=== PATIENT | female | born 1940 | race African-American/Black ===

== ENCOUNTER 2017-11-18 19:26 | Inpatient (IN) | payer MEDICARE, MEDICAID ==
[~2017-11-18] VITALS: Ht 165.1 cm; Wt 68.1 kg
[2017-11-18] MEDS ORDERED: METHYLPREDNISOLONE SOD SUCC 125 MG/2 ML VIAL IV ONE (19:45)
[2017-11-18] MEDS ORDERED: ALBUTEROL (0.083%) 2.5MG/3ML NEB HHN ONE (19:45)
[2017-11-18 20:40] LABS: BASOPHILS % 0.4 % (0.0-2.0); EOSINOPHILS % 0.4 % (0.0-5.0); HEMATOCRIT. 35.2 % (36.0-48.0); HEMOGLOBIN. 11.3 g/dL (12.0-16.0); MEAN CORPUSCULAR HEMOGLOBIN 26.4 pg (28.0-32.0); MEAN CORPUSCULAR VOLUME 81.8 fL (81.0-99.0); MONOCYTES % 6.9 % (2.0-8.0); NEUTROPHILS % 73.3 % (40.0-76.0); RED CELL DISTRIBUTION WIDTH 15.8 % (11.6-14.6)
[2017-11-18 20:41] LABS: CHLORIDE 113 mEq/L (98-107)
[2017-11-18] MEDS ORDERED: METHYLPREDNISOLONE SOD SUCC 125 MG/2 ML VIAL IV NR (20:45)
[2017-11-18 20:53] LABS: INR 1.2; PROTHROMBIN TIME 12.7 sec (9.4-11.6)
[2017-11-18] MEDS ORDERED: NITROGLYCERIN 0.1MG/HR PATCH TOP ONE (21:15)
[2017-11-18] MEDS ORDERED: FUROSEMIDE 40MG/4ML VIAL IVP ONE (21:15)
[2017-11-18 21:19] LABS: BG BASE EXCESS -1.5 mmol/L (-2.0-2.0); BG BILEVEL POS AIRWAY PRESSURE 15/5; BG CARBOXYHEMOGLOBIN 0.4 % (0.5-1.5); BG DEOXYHEMOGLOBIN 0.2 % (0.0-5.0); BG FRACTION INSPIRED OXYGEN 100; BG METHEMOGLOBIN 0.4 % (0.0-1.5); BG OXYGEN SATURATION 99.8 % (92.0-98.5); BG PH 7.399 (7.350-7.450); BG PO2 448.7 mmHg (75.0-100.0); BG SAMPLE SITE RIGHT RADIAL; BG TOTAL HEMOGLOBIN 12.3 g/dL (12.0-18.0); BG VENT MODE MASK - BIPAP; BG VENT RATE 20 set
[2017-11-18 21:34] LABS: CREATINE KINASE 103 IU/L (26-192)
[2017-11-18] MEDS ORDERED: CLONIDINE 0.1MG TABLET PO PRN (23:00)
[2017-11-18] MEDS ORDERED: IPRATROPIUM/ALBUTEROL 0.5-3(2.5)MG/3ML NEB INH PRN (23:00)
[2017-11-18] MEDS ORDERED: NITROGLYCERIN 0.4MG TABLET SL SL PRN (23:00)
[2017-11-18] MEDS ORDERED: GUAIFENESIN 200MG/10ML SUGAR FREE UDC PO PRN (23:00)
[2017-11-18] MEDS ORDERED: DIPHENHYDRAMINE 50MG/ML VIAL IV PRN (23:00)
[2017-11-18] MEDS: POTASSIUM CHLORIDE 20MEQ TABLET SR PO NR (23:00)
[2017-11-18] MEDS ORDERED: ACETAMINOPHEN 325MG TABLET PO PRN (23:00)
[2017-11-18] MEDS ORDERED: ONDANSETRON HCL 4MG/2ML VIAL IV PRN (23:00)
[2017-11-18] MEDS ORDERED: DOCUSATE SODIUM 100MG CAPSULE PO PRN (23:00)
[2017-11-18] MEDS ORDERED: LORAZEPAM 0.5MG TABLET PO PRN (23:00)
[2017-11-18] MEDS ORDERED: KETOROLAC 15MG/ML VIAL IV PRN (23:00)
[2017-11-18] MEDS ORDERED: NA PHOS,M-B/NA PHOS,DI-BA ENEMA 118ML PR PRN (23:00)
[2017-11-18] MEDS ORDERED: ZOLPIDEM TARTRATE 5MG TABLET PO PRN (23:00)
[2017-11-18] MEDS ORDERED: MAGNESIUM/ALUMINUM HYDROXIDE/SIMETHICONE 30ML UDC PO PRN (23:00)
[2017-11-18] MEDS ORDERED: TRAMADOL 50MG TABLET PO PRN (23:00)
[2017-11-19] VITALS (14 sets, daily range): BP systolic 138–166; BP diastolic 78–99
[2017-11-19] MEDS ORDERED: ONDANSETRON 4MG ODT PO PRN (02:45)
[2017-11-19] MEDS ORDERED: LEVOFLOXACIN 500MG PREMIX 100 ML IV SCH ×2 (03:00→04:00)
[2017-11-19] MEDS: DILTIAZEM HCL 60MG TABLET PO SCH ×4 (06:16→18:24)
[2017-11-19 07:12] LABS: CREATINE KINASE MB FRACTION 2.2 ng/mL (0.5-3.6)
[2017-11-19] MEDS: ASPIRIN 325MG EC TABLET PO SCH (09:00)
[2017-11-19] MEDS ORDERED: HYDRALAZINE 20MG/ML VIAL IV PRN (10:45)
[2017-11-19] MEDS: FAMOTIDINE 20MG TABLET PO SCH (11:40)
[2017-11-19] MEDS: GUAIFENESIN/DM 600MG/30MG ER TAB 12HR PO SCH ×2 (11:40→21:00)
[2017-11-19] MEDS: METOPROLOL TARTRATE 25MG TABLET PO SCH ×2 (11:40→21:00)
[2017-11-19] MEDS: ZINC SULFATE 220 MG ( 50 ) CAPSULE PO SCH (11:40)
[2017-11-19] MEDS: SPIRONOLACTONE 25MG TABLET PO SCH ×2 (11:42→21:00)
[2017-11-19] MEDS: ASCORBIC ACID 500 MG TABLET PO SCH ×2 (11:43→21:00)
[2017-11-19] MEDS ORDERED: KCL 20MEQ/100ML PREMIX 100 ML IV NR (12:00)
[2017-11-19] MEDS: FUROSEMIDE 40MG/4ML VIAL IVP SCH ×2 (14:54→21:15)
[2017-11-19] MEDS: ENOXAPARIN 40MG/0.4ML SYR SUBCUT SCH (18:24)
[2017-11-19 18:30] LABS: ETHANOL BLOOD < 10 mg/dL
[2017-11-19 18:33] LABS: LDL CHOLESTEROL 66 mg/dL (5-100)
[2017-11-19 18:35] LABS: HDL CHOLESTEROL 66 mg/dL (40-59); T4 FREE 1.12 ng/dL (0.76-1.46)
[2017-11-19 18:48] LABS: FOLIC ACID (FOLATE) SERUM >20 ng/mL ng/mL (>5.38)
[2017-11-19 19:00] LABS: VITAMIN B12 SERUM 899 pg/mL (211-911)
[2017-11-19] MEDS: PIPERACILLIN/TAZ 3.375G PREMIX 50 ML IV SCH (22:08)
[2017-11-19 23:06] LABS: CLARITY URINE CLEAR (CLEAR); COLOR URINE YELLOW (YELLOW); KETONES URINE NEGATIVE (NEGATIVE); LEUKOCYTE ESTERASE URINE NEGATIVE (NEGATIVE); NITRITE URINE NEGATIVE (NEGATIVE); OCCULT BLOOD URINE TRACE (NEGATIVE); PROTEIN URINE NEGATIVE (NEGATIVE); SPECIFIC GRAVITY URINE 1.011 (1.005-1.030); UROBILINOGEN URINE 0.2 E.U./dL (0.2-1.0)
[2017-11-19 23:07] LABS: *AMPHETAMINES SCREEN URINE NEGATIVE (NEGATIVE); *BARBITURATES SCREEN URINE NEGATIVE (NEGATIVE); *BENZODIAZEPINES SCREEN URINE NEGATIVE (NEGATIVE); *COCAINE SCREEN URINE NEGATIVE (NEGATIVE)
[2017-11-19 23:08] LABS: CANNABINOID URINE SCREEN NEGATIVE (NEGATIVE); METHADONE URINE SCREEN NEGATIVE (NEGATIVE); OPIATES URINE SCREEN NEGATIVE (NEGATIVE); PHENCYCLIDINE URINE SCREEN NEGATIVE (NEGATIVE)
[2017-11-19] MEDS: POTASSIUM CHLORIDE 20MEQ TABLET SR PO NR (23:21)
[2017-11-20] VITALS (12 sets, daily range): BP systolic 142–166; BP diastolic 65–104
[2017-11-20] MEDS: LEVOFLOXACIN 250MG PREMIX 50 ML IV SCH (03:24)
[2017-11-20] MEDS: PIPERACILLIN/TAZ 3.375G PREMIX 50 ML IV SCH ×4 (04:20→21:45)
[2017-11-20] MEDS: DILTIAZEM HCL 60MG TABLET PO SCH ×2 (06:00)
[2017-11-20 06:33] LABS: BASOPHILS % 0.3 % (0.0-2.0); HEMATOCRIT. 39.8 % (36.0-48.0); HEMOGLOBIN. 13.2 g/dL (12.0-16.0); LYMPHOCYTES % 11.7 % (20.0-50.0); MEAN CORPUSCULAR HEMOGLOBIN 26.8 pg (28.0-32.0); MONOCYTES % 7.3 % (2.0-8.0); NEUTROPHILS % 80.7 % (40.0-76.0); RED BLOOD CELL COUNT 4.91 mill/uL (4.2-5.4); RED CELL DISTRIBUTION WIDTH 16.3 % (11.6-14.6)
[2017-11-20 06:59] LABS: CHLORIDE 103 mEq/L (98-107)
[2017-11-20 07:06] LABS: LDL CHOLESTEROL 79 mg/dL (5-100)
[2017-11-20 07:07] LABS: CREATINE KINASE MB FRACTION 2.3 ng/mL (0.5-3.6); HDL CHOLESTEROL 70 mg/dL (40-59)
[2017-11-20 07:08] LABS: CREATINE KINASE 411 IU/L (26-192)
[2017-11-20] MEDS: FUROSEMIDE 40MG/4ML VIAL IVP SCH (08:49)
[2017-11-20] MEDS: ENOXAPARIN 40MG/0.4ML SYR SUBCUT SCH (08:49)
[2017-11-20] MEDS: ASCORBIC ACID 500 MG TABLET PO SCH ×2 (09:00→21:43)
[2017-11-20] MEDS: ZINC SULFATE 220 MG ( 50 ) CAPSULE PO SCH (09:00)
[2017-11-20] MEDS: METOPROLOL TARTRATE 25MG TABLET PO SCH ×2 (09:00→21:43)
[2017-11-20] MEDS: FAMOTIDINE 20MG TABLET PO SCH (09:00)
[2017-11-20] MEDS: GUAIFENESIN/DM 600MG/30MG ER TAB 12HR PO SCH ×2 (09:00→21:00)
[2017-11-20] MEDS: ASPIRIN 325MG EC TABLET PO SCH (09:00)
[2017-11-20] MEDS: APIXABAN 5 MG TABLET PO SCH (21:43)
[2017-11-21] VITALS (9 sets, daily range): BP systolic 123–156; BP diastolic 67–88
[2017-11-21] MEDS: PIPERACILLIN/TAZ 3.375G PREMIX 50 ML IV SCH ×2 (04:04→10:44)
[2017-11-21] MEDS: LEVOFLOXACIN 250MG PREMIX 50 ML IV SCH (04:47)
[2017-11-21 07:51] LABS: BASOPHILS % 0.6 % (0.0-2.0); EOSINOPHILS % 0.8 % (0.0-5.0); HEMATOCRIT. 40.7 % (36.0-48.0); HEMOGLOBIN. 13.3 g/dL (12.0-16.0); MEAN CORPUSCULAR HEMOGLOBIN 26.4 pg (28.0-32.0); MEAN CORPUSCULAR VOLUME 80.6 fL (81.0-99.0); MONOCYTES % 10.1 % (2.0-8.0); NEUTROPHILS % 67.5 % (40.0-76.0); RED BLOOD CELL COUNT 5.05 mill/uL (4.2-5.4); RED CELL DISTRIBUTION WIDTH 15.9 % (11.6-14.6)
[2017-11-21] MEDS: ZINC SULFATE 220 MG ( 50 ) CAPSULE PO SCH (08:57)
[2017-11-21] MEDS: APIXABAN 5 MG TABLET PO SCH (08:58)
[2017-11-21] MEDS: ASCORBIC ACID 500 MG TABLET PO SCH (08:58)
[2017-11-21] MEDS: FAMOTIDINE 20MG TABLET PO SCH (08:58)
[2017-11-21] MEDS: ASPIRIN 325MG EC TABLET PO SCH (08:58)
[2017-11-21] MEDS: METOPROLOL TARTRATE 25MG TABLET PO SCH (08:58)
[2017-11-21] MEDS: GUAIFENESIN/DM 600MG/30MG ER TAB 12HR PO SCH (09:00)
[2017-11-21] MEDS ORDERED: POTASSIUM CHLORIDE INJ 40 MEQ in DEXT 5% WATER 250 ML IV ONE (12:15)
[2017-11-21] MEDS ORDERED: KCL 20MEQ/100ML PREMIX 100 ML IV SCH (14:00)
== END 2017-11-21 16:02 | DRG 64 ==
LOC: ER 19:26 → SUPCPDRO 22:49 → EDBD 22:54 → 3WST 22:54 → EDBEDREQ 22:57 → EDBEDREQTM 22:57 → EDBEDREQSVC 22:57 → ENRESERV 23:14 → 3WST 11-21 16:01
PROVIDERS: ADMIT Internal Medicine; ATTEND Internal Medicine
PROC: 5A09357 Assistance with Respiratory Ventilation, Less than 24 Consecutive Hours, Continuous Positive Airway Pressure (ICD-10-PCS; principal; 2017-11-18)
DX: I63.9 Cerebral infarction, unspecified (principal); I50.43 Acute on chronic combined systolic (congestive) and diastolic (congestive) heart failure; J96.00 Acute respiratory failure, unspecified whether with hypoxia or hypercapnia; I21.4 Non-ST elevation (NSTEMI) myocardial infarction; G92 Toxic encephalopathy; E87.0 Hyperosmolality and hypernatremia; G81.91 Hemiplegia, unspecified affecting right dominant side; I42.0 Dilated cardiomyopathy; R47.01 Aphasia; E87.6 Hypokalemia; D64.9 Anemia, unspecified; I65.21 Occlusion and stenosis of right carotid artery; R47.1 Dysarthria and anarthria; I11.0 Hypertensive heart disease with heart failure; D63.8 Anemia in other chronic diseases classified elsewhere; E11.65 Type 2 diabetes mellitus with hyperglycemia; E78.00 Pure hypercholesterolemia, unspecified; I25.10 Atherosclerotic heart disease of native coronary artery without angina pectoris; H53.47 Heteronymous bilateral field defects; I49.3 Ventricular premature depolarization; R13.10 Dysphagia, unspecified; R29.810 Facial weakness; Z98.61 Coronary angioplasty status
CPT/HCPCS: 36415; 36600; 70450; 70544; 70553; 71045; 80048; 80053; 80061; 80305; 81003; 82375; 82550; 82553; 82607; 82746; 82805; 83036; 83735; 83880; 84439; 84443; 84481; 84484; 85025; 85049; 85379; 85610; 87086; 92523; 92610; 93005; 93306; 93880; 93970; 96374; 96375; 97162; 97166; 97530; 99291; G0482; J0360; J1650; J1940; J1956; J2543; J2930; J3480; J7050; J7611; A4315

== ENCOUNTER 2017-11-21 16:20 | Inpatient (IN) | payer MEDICARE, MEDICAID ==
[~2017-11-21] VITALS: Ht 165.1 cm; Wt 69.9 kg
[2017-11-21] MEDS ORDERED: ONDANSETRON 4MG ODT PO PRN (17:00)
[2017-11-21] MEDS ORDERED: GUAIFENESIN 200MG/10ML SUGAR FREE UDC PO PRN (17:00)
[2017-11-21] MEDS ORDERED: IPRATROPIUM/ALBUTEROL 0.5-3(2.5)MG/3ML NEB HHN PRN (17:00)
[2017-11-21] MEDS ORDERED: ZOLPIDEM TARTRATE 5MG TABLET PO PRN (17:00)
[2017-11-21] MEDS ORDERED: DIPHENHYDRAMINE 50MG/ML VIAL IV PRN (17:00)
[2017-11-21] MEDS ORDERED: CLONIDINE 0.1MG TABLET PO PRN (17:00)
[2017-11-21 17:19] VITALS: BP 138/83
[2017-11-21 17:23] VITALS: BP 138/83
[2017-11-21] MEDS ORDERED: NA PHOS,M-B/NA PHOS,DI-BA ENEMA 118ML PR NR (18:00)
[2017-11-21] MEDS: DOCUSATE SODIUM 100MG CAPSULE PO SCH (18:33)
[2017-11-21 20:00] VITALS: BP 143/91
[2017-11-21] MEDS: GUAIFENESIN/DM 600MG/30MG ER TAB 12HR PO SCH (21:00)
[2017-11-21] MEDS: PIPERACILLIN/TAZ 3.375G PREMIX 50 ML IV SCH (21:06)
[2017-11-21] MEDS: METOPROLOL TARTRATE 25MG TABLET PO SCH (21:14)
[2017-11-21] MEDS: APIXABAN 5 MG TABLET PO SCH (21:15)
[2017-11-21] MEDS: ASCORBIC ACID 500 MG TABLET PO SCH (21:15)
[2017-11-21] MEDS ORDERED: KCL 20MEQ/100ML PREMIX 100 ML IV ONE (23:00)
[2017-11-22] MEDS: PIPERACILLIN/TAZ 3.375G PREMIX 50 ML IV SCH ×4 (01:55→21:56)
[2017-11-22] MEDS ORDERED: LEVOFLOXACIN 250MG PREMIX 50 ML IV SCH (06:00)
[2017-11-22] MEDS: NA PHOS,M-B/NA PHOS,DI-BA ENEMA 118ML PR PRN (06:35)
[2017-11-22 08:00] VITALS: BP 152/93
[2017-11-22 08:14] LABS: CHLORIDE 101 mEq/L (98-107)
[2017-11-22 08:20] LABS: HEMOGLOBIN 13.9 g/dL (12.0-16.0); MEAN CORPUSCULAR HEMOGLOBIN 26.6 pg (28.0-32.0); MEAN CORPUSCULAR VOLUME 80.5 fL (81.0-99.0); RED BLOOD CELL COUNT 5.22 mill/uL (4.2-5.4); RED CELL DISTRIBUTION WIDTH 15.9 % (11.6-14.6)
[2017-11-22] MEDS: ASCORBIC ACID 500 MG TABLET PO SCH ×2 (08:56→21:56)
[2017-11-22] MEDS: APIXABAN 5 MG TABLET PO SCH ×2 (08:56→21:56)
[2017-11-22] MEDS: ZINC SULFATE 220 MG ( 50 ) CAPSULE PO SCH (08:56)
[2017-11-22] MEDS: FAMOTIDINE 20MG TABLET PO SCH (08:57)
[2017-11-22] MEDS: METOPROLOL TARTRATE 25MG TABLET PO SCH (08:57)
[2017-11-22] MEDS: DOCUSATE SODIUM 100MG CAPSULE PO SCH (08:57)
[2017-11-22] MEDS ORDERED: ASPIRIN 325MG EC TABLET PO SCH (09:00)
[2017-11-22] MEDS: GUAIFENESIN/DM 600MG/30MG ER TAB 12HR PO SCH (09:24)
[2017-11-22] MEDS ORDERED: POTASSIUM CHLORIDE 20MEQ TABLET SR PO NR (11:30)
[2017-11-22] MEDS: LOSARTAN POTASSIUM 25 MG TABLET PO SCH (13:35)
[2017-11-22] MEDS: DOCUSATE SODIUM SUGAR FREE 100MG/10ML UDC PO SCH (17:20)
[2017-11-22 20:00] VITALS: BP 112/73
[2017-11-22] MEDS: ATORVASTATIN CALCIUM 10MG TABLET PO SCH (21:56)
[2017-11-22] MEDS: CARVEDILOL 3.125 MG TABLET PO SCH (21:56)
[2017-11-23] MEDS: PIPERACILLIN/TAZ 3.375G PREMIX 50 ML IV SCH ×3 (01:28→14:00)
[2017-11-23 07:24] LABS: EOSINOPHILS % 2.4 % (0.0-5.0); HEMATOCRIT. 40.4 % (36.0-48.0); HEMOGLOBIN. 13.3 g/dL (12.0-16.0); MEAN CORPUSCULAR HEMOGLOBIN 26.6 pg (28.0-32.0); MEAN CORPUSCULAR VOLUME 81.2 fL (81.0-99.0); MONOCYTES % 10.5 % (2.0-8.0); NEUTROPHILS % 58.1 % (40.0-76.0); RED BLOOD CELL COUNT 4.98 mill/uL (4.2-5.4); RED CELL DISTRIBUTION WIDTH 16.1 % (11.6-14.6)
[2017-11-23 07:37] LABS: CHLORIDE 103 mEq/L (98-107)
[2017-11-23 07:44] LABS: TOTAL IRON BINDING CAPACITY 297 ug/dL (250-450)
[2017-11-23 07:48] LABS: CREATINE KINASE 191 IU/L (26-192)
[2017-11-23 07:50] VITALS: BP 146/70
[2017-11-23 07:56] LABS: FOLIC ACID (FOLATE) SERUM 19.7 ng/mL (>5.38)
[2017-11-23] MEDS ORDERED: POTASSIUM CHLORIDE 20MEQ/PACKET PO NR ×2 (08:30→13:00)
[2017-11-23] MEDS: ASCORBIC ACID 500 MG TABLET PO SCH ×2 (09:05→21:16)
[2017-11-23] MEDS: DOCUSATE SODIUM SUGAR FREE 100MG/10ML UDC PO SCH ×2 (09:05→16:34)
[2017-11-23] MEDS: ZINC SULFATE 220 MG ( 50 ) CAPSULE PO SCH (09:05)
[2017-11-23] MEDS: APIXABAN 5 MG TABLET PO SCH ×2 (09:05→21:16)
[2017-11-23] MEDS: FAMOTIDINE 20MG TABLET PO SCH (09:06)
[2017-11-23] MEDS: LOSARTAN POTASSIUM 25 MG TABLET PO SCH ×2 (09:06→21:16)
[2017-11-23] MEDS: ASPIRIN 81MG EC TABLET PO SCH (09:06)
[2017-11-23] MEDS: CARVEDILOL 3.125 MG TABLET PO SCH ×2 (09:07→21:16)
[2017-11-23] MEDS ORDERED: KCL 20MEQ/100ML PREMIX 100 ML IV NR (09:30)
[2017-11-23] MEDS ORDERED: BARIUM SULFATE 176 GM SUSP.RECON ONE (10:05)
[2017-11-23 20:00] VITALS: BP 123/66
[2017-11-23] MEDS: ATORVASTATIN CALCIUM 10MG TABLET PO SCH (21:16)
[2017-11-24 07:00] VITALS: BP 129/76
[2017-11-24] MEDS: DOCUSATE SODIUM SUGAR FREE 100MG/10ML UDC PO SCH ×2 (09:00→16:15)
[2017-11-24] MEDS ORDERED: ASCORBIC ACID 250 MG TABLET PO SCH (09:00)
[2017-11-24] MEDS: ZINC SULFATE 220 MG ( 50 ) CAPSULE PO SCH (09:33)
[2017-11-24] MEDS: ASPIRIN 81MG EC TABLET PO SCH (09:33)
[2017-11-24] MEDS: LOSARTAN POTASSIUM 25 MG TABLET PO SCH ×2 (09:34→21:19)
[2017-11-24] MEDS: CARVEDILOL 3.125 MG TABLET PO SCH ×2 (09:34→20:24)
[2017-11-24] MEDS: FAMOTIDINE 20MG TABLET PO SCH (09:34)
[2017-11-24] MEDS: APIXABAN 5 MG TABLET PO SCH ×2 (09:34→20:24)
[2017-11-24 20:00] VITALS: BP 139/60
[2017-11-24] MEDS: ASCORBIC ACID 500 MG TABLET PO SCH (20:24)
[2017-11-24] MEDS: ATORVASTATIN CALCIUM 10MG TABLET PO SCH (20:24)
[2017-11-24 21:19] VITALS: BP 127/71
[2017-11-25 08:00] VITALS: BP 135/79
[2017-11-25] MEDS: DOCUSATE SODIUM SUGAR FREE 100MG/10ML UDC PO SCH ×2 (09:00→16:36)
[2017-11-25] MEDS: ASCORBIC ACID 500 MG TABLET PO SCH ×2 (09:24→21:18)
[2017-11-25] MEDS: ZINC SULFATE 220 MG ( 50 ) CAPSULE PO SCH (09:24)
[2017-11-25] MEDS: FAMOTIDINE 20MG TABLET PO SCH (09:24)
[2017-11-25] MEDS: ASPIRIN 81MG EC TABLET PO SCH (09:24)
[2017-11-25] MEDS: LOSARTAN POTASSIUM 25 MG TABLET PO SCH ×2 (09:24→21:18)
[2017-11-25] MEDS: APIXABAN 5 MG TABLET PO SCH ×2 (09:26→21:18)
[2017-11-25] MEDS: CARVEDILOL 3.125 MG TABLET PO SCH ×2 (09:26→23:21)
[2017-11-25 20:00] VITALS: BP 124/69
[2017-11-25] MEDS: ATORVASTATIN CALCIUM 10MG TABLET PO SCH (21:18)
[2017-11-26 07:50] VITALS: BP 149/82
[2017-11-26] MEDS: DOCUSATE SODIUM SUGAR FREE 100MG/10ML UDC PO SCH ×2 (08:51→17:00)
[2017-11-26] MEDS: ZINC SULFATE 220 MG ( 50 ) CAPSULE PO SCH (08:51)
[2017-11-26] MEDS: ASPIRIN 81MG EC TABLET PO SCH (08:52)
[2017-11-26] MEDS: FAMOTIDINE 20MG TABLET PO SCH (08:52)
[2017-11-26] MEDS: APIXABAN 5 MG TABLET PO SCH ×2 (08:52→21:15)
[2017-11-26] MEDS: LOSARTAN POTASSIUM 25 MG TABLET PO SCH ×2 (08:52→21:15)
[2017-11-26] MEDS: ASCORBIC ACID 500 MG TABLET PO SCH ×2 (08:52→21:15)
[2017-11-26] MEDS: FLUCONAZOLE 100MG TABLET PO SCH (08:52)
[2017-11-26] MEDS: CARVEDILOL 3.125 MG TABLET PO SCH ×2 (08:52→21:15)
[2017-11-26 20:00] VITALS: BP 134/70
[2017-11-26] MEDS: ATORVASTATIN CALCIUM 10MG TABLET PO SCH (21:15)
[2017-11-27] MEDS: ACETAMINOPHEN 325MG TABLET PO PRN (06:01)
[2017-11-27 06:25] LABS: CLARITY URINE CLOUDY (CLEAR); COLOR URINE YELLOW (YELLOW); KETONES URINE NEGATIVE (NEGATIVE); LEUKOCYTE ESTERASE URINE NEGATIVE (NEGATIVE); NITRITE URINE NEGATIVE (NEGATIVE); OCCULT BLOOD URINE NEGATIVE (NEGATIVE); PROTEIN URINE NEGATIVE (NEGATIVE); SPECIFIC GRAVITY URINE 1.021 (1.005-1.030); UROBILINOGEN URINE 0.2 E.U./dL (0.2-1.0)
[2017-11-27] MEDS ORDERED: OXYCODONE HCL 5MG TABLET PO PRN (07:00)
[2017-11-27 07:49] VITALS: BP 151/80
[2017-11-27] MEDS: ZINC SULFATE 220 MG ( 50 ) CAPSULE PO SCH (08:28)
[2017-11-27] MEDS: LOSARTAN POTASSIUM 25 MG TABLET PO SCH ×2 (08:28→21:35)
[2017-11-27] MEDS: ASPIRIN 81MG EC TABLET PO SCH (08:28)
[2017-11-27] MEDS: ASCORBIC ACID 500 MG TABLET PO SCH ×2 (08:28→21:33)
[2017-11-27] MEDS: GABAPENTIN 100MG CAPSULE PO SCH ×3 (08:28→16:59)
[2017-11-27] MEDS: FLUCONAZOLE 100MG TABLET PO SCH (08:28)
[2017-11-27] MEDS: FAMOTIDINE 20MG TABLET PO SCH (08:28)
[2017-11-27] MEDS: DOCUSATE SODIUM SUGAR FREE 100MG/10ML UDC PO SCH ×2 (08:28→16:59)
[2017-11-27] MEDS: CARVEDILOL 3.125 MG TABLET PO SCH (08:29)
[2017-11-27] MEDS: APIXABAN 5 MG TABLET PO SCH ×2 (08:29→21:33)
[2017-11-27 12:35] LABS: BASOPHILS % 0.7 % (0.0-2.0); EOSINOPHILS % 1.4 % (0.0-5.0); HEMATOCRIT. 38.7 % (36.0-48.0); HEMOGLOBIN. 12.6 g/dL (12.0-16.0); LYMPHOCYTES % 18.5 % (20.0-50.0); MEAN CORPUSCULAR HEMOGLOBIN 26.6 pg (28.0-32.0); MEAN CORPUSCULAR VOLUME 81.6 fL (81.0-99.0); NEUTROPHILS % 70.4 % (40.0-76.0); RED BLOOD CELL COUNT 4.75 mill/uL (4.2-5.4); RED CELL DISTRIBUTION WIDTH 16.6 % (11.6-14.6)
[2017-11-27 12:42] LABS: CHLORIDE 105 mEq/L (98-107)
[2017-11-27] MEDS ORDERED: POTASSIUM CHLORIDE 20MEQ TABLET SR PO NR (13:15)
[2017-11-27 20:00] VITALS: BP 125/56
[2017-11-27] MEDS: ATORVASTATIN CALCIUM 10MG TABLET PO SCH (21:33)
[2017-11-27] MEDS: CARVEDILOL 6.25 MG TABLET PO SCH (22:50)
[2017-11-28 07:40] VITALS: BP 146/81
[2017-11-28] MEDS: DOCUSATE SODIUM SUGAR FREE 100MG/10ML UDC PO SCH ×2 (08:32→17:38)
[2017-11-28] MEDS: ZINC SULFATE 220 MG ( 50 ) CAPSULE PO SCH (08:32)
[2017-11-28] MEDS: APIXABAN 5 MG TABLET PO SCH ×2 (08:33→21:32)
[2017-11-28] MEDS: FLUCONAZOLE 100MG TABLET PO SCH (08:33)
[2017-11-28] MEDS: LOSARTAN POTASSIUM 25 MG TABLET PO SCH ×2 (08:33→21:33)
[2017-11-28] MEDS: ASPIRIN 81MG EC TABLET PO SCH (08:33)
[2017-11-28] MEDS: CARVEDILOL 6.25 MG TABLET PO SCH ×2 (08:33→21:33)
[2017-11-28] MEDS: GABAPENTIN 100MG CAPSULE PO SCH ×3 (08:33→17:38)
[2017-11-28] MEDS: FAMOTIDINE 20MG TABLET PO SCH (08:33)
[2017-11-28] MEDS: FUROSEMIDE 20MG TABLET PO SCH (08:33)
[2017-11-28] MEDS: ASCORBIC ACID 500 MG TABLET PO SCH ×2 (11:29→21:32)
[2017-11-28 20:00] VITALS: BP 130/84
[2017-11-28] MEDS: ATORVASTATIN CALCIUM 10MG TABLET PO SCH (21:32)
[2017-11-29 07:22] LABS: BASOPHILS % 1.1 % (0.0-2.0); EOSINOPHILS % 1.8 % (0.0-5.0); HEMATOCRIT. 35.9 % (36.0-48.0); HEMOGLOBIN. 11.7 g/dL (12.0-16.0); LYMPHOCYTES % 31.5 % (20.0-50.0); MEAN CORPUSCULAR HEMOGLOBIN 26.4 pg (28.0-32.0); MEAN CORPUSCULAR VOLUME 81.2 fL (81.0-99.0); MEAN PLATELET VOLUME 10.5 fl (7.4-10.4); MONOCYTES % 13.2 % (2.0-8.0); NEUTROPHILS % 52.4 % (40.0-76.0); RED BLOOD CELL COUNT 4.43 mill/uL (4.2-5.4); RED CELL DISTRIBUTION WIDTH 16.1 % (11.6-14.6)
[2017-11-29 07:35] VITALS: BP 124/58
[2017-11-29 08:16] LABS: CHLORIDE 105 mEq/L (98-107)
[2017-11-29 08:24] LABS: PHOSPHORUS 3.1 mg/dL (2.5-4.9)
[2017-11-29] MEDS: POTASSIUM CHLORIDE 20MEQ/PACKET PO SCH (09:29)
[2017-11-29] MEDS: GABAPENTIN 100MG CAPSULE PO SCH ×3 (09:29→17:00)
[2017-11-29] MEDS: FAMOTIDINE 20MG TABLET PO SCH (09:29)
[2017-11-29] MEDS: ZINC SULFATE 220 MG ( 50 ) CAPSULE PO SCH (09:30)
[2017-11-29] MEDS: ASPIRIN 81MG EC TABLET PO SCH (09:30)
[2017-11-29] MEDS: FLUCONAZOLE 100MG TABLET PO SCH (09:30)
[2017-11-29] MEDS: DOCUSATE SODIUM 100MG CAPSULE PO SCH ×2 (09:30→17:00)
[2017-11-29] MEDS: APIXABAN 5 MG TABLET PO SCH ×2 (09:30→21:35)
[2017-11-29] MEDS: ASCORBIC ACID 500 MG TABLET PO SCH ×2 (09:30→21:35)
[2017-11-29] MEDS: CARVEDILOL 6.25 MG TABLET PO SCH ×2 (09:31→21:35)
[2017-11-29] MEDS: FUROSEMIDE 20MG TABLET PO SCH (09:31)
[2017-11-29] MEDS: LOSARTAN POTASSIUM 25 MG TABLET PO SCH ×2 (09:31→21:35)
[2017-11-29 17:06] LABS: 25-HYDROXY VITAMIN D3 33 ng/mL (.)
[2017-11-29 20:00] VITALS: BP 158/87
[2017-11-29] MEDS: ATORVASTATIN CALCIUM 10MG TABLET PO SCH (21:35)
[2017-11-30 08:00] VITALS: BP 148/85
[2017-11-30] MEDS: LOSARTAN POTASSIUM 25 MG TABLET PO SCH ×2 (08:14→22:49)
[2017-11-30] MEDS: ASPIRIN 81MG EC TABLET PO SCH (08:14)
[2017-11-30] MEDS: GABAPENTIN 100MG CAPSULE PO SCH ×3 (08:15→16:18)
[2017-11-30] MEDS: POTASSIUM CHLORIDE 20MEQ/PACKET PO SCH (08:15)
[2017-11-30] MEDS: FUROSEMIDE 20MG TABLET PO SCH (08:15)
[2017-11-30] MEDS: CARVEDILOL 6.25 MG TABLET PO SCH ×2 (08:15→21:42)
[2017-11-30] MEDS: APIXABAN 5 MG TABLET PO SCH ×2 (08:15→21:40)
[2017-11-30] MEDS: ZINC SULFATE 220 MG ( 50 ) CAPSULE PO SCH (08:15)
[2017-11-30] MEDS: ASCORBIC ACID 500 MG TABLET PO SCH ×2 (08:16→21:40)
[2017-11-30] MEDS: FAMOTIDINE 20MG TABLET PO SCH (08:16)
[2017-11-30] MEDS: DOCUSATE SODIUM 100MG CAPSULE PO SCH ×2 (08:16→16:18)
[2017-11-30] MEDS: FLUTICASONE PROPIONATE 50MCG/SPRAY BOTTLE BOTHNSTRLS SCH (13:08)
[2017-11-30] MEDS: ERGOCALCIFEROL 50000UNITS CAPSULE PO SCH (17:39)
[2017-11-30 20:00] VITALS: BP 106/52
[2017-11-30] MEDS: ATORVASTATIN CALCIUM 10MG TABLET PO SCH (21:40)
[2017-11-30] MEDS: NA PHOS,M-B/NA PHOS,DI-BA ENEMA 118ML PR PRN (22:07)
[2017-12-01 08:00] VITALS: BP 141/70
[2017-12-01] MEDS: DOCUSATE SODIUM 100MG CAPSULE PO SCH ×2 (08:31→17:03)
[2017-12-01] MEDS: ZINC SULFATE 220 MG ( 50 ) CAPSULE PO SCH (08:31)
[2017-12-01] MEDS: FLUTICASONE PROPIONATE 50MCG/SPRAY BOTTLE BOTHNSTRLS SCH (08:31)
[2017-12-01] MEDS: LOSARTAN POTASSIUM 25 MG TABLET PO SCH ×2 (08:32→20:25)
[2017-12-01] MEDS: ASPIRIN 81MG EC TABLET PO SCH (08:32)
[2017-12-01] MEDS: APIXABAN 5 MG TABLET PO SCH ×2 (08:32→20:24)
[2017-12-01] MEDS: FUROSEMIDE 20MG TABLET PO SCH (08:32)
[2017-12-01] MEDS: FAMOTIDINE 20MG TABLET PO SCH (08:32)
[2017-12-01] MEDS: ASCORBIC ACID 500 MG TABLET PO SCH ×2 (08:32→20:24)
[2017-12-01] MEDS: CARVEDILOL 6.25 MG TABLET PO SCH ×2 (08:32→20:24)
[2017-12-01] MEDS: GABAPENTIN 100MG CAPSULE PO SCH ×3 (08:32→17:03)
[2017-12-01] MEDS: POTASSIUM CHLORIDE 20MEQ/PACKET PO SCH (08:33)
[2017-12-01] MEDS ORDERED: SIMETHICONE 80MG TABLET CHEW PO PRN (09:15)
[2017-12-01 20:00] VITALS: BP 108/53
[2017-12-01] MEDS: ATORVASTATIN CALCIUM 10MG TABLET PO SCH (20:24)
[2017-12-02 08:00] VITALS: BP 148/72
[2017-12-02] MEDS: ASPIRIN 81MG EC TABLET PO SCH (09:13)
[2017-12-02] MEDS: FUROSEMIDE 20MG TABLET PO SCH (09:13)
[2017-12-02] MEDS: DOCUSATE SODIUM 100MG CAPSULE PO SCH ×2 (09:13→17:42)
[2017-12-02] MEDS: LOSARTAN POTASSIUM 25 MG TABLET PO SCH ×2 (09:13→20:50)
[2017-12-02] MEDS: ZINC SULFATE 220 MG ( 50 ) CAPSULE PO SCH (09:13)
[2017-12-02] MEDS: ASCORBIC ACID 500 MG TABLET PO SCH ×2 (09:13→20:50)
[2017-12-02] MEDS: FAMOTIDINE 20MG TABLET PO SCH (09:13)
[2017-12-02] MEDS: GABAPENTIN 100MG CAPSULE PO SCH ×3 (09:13→17:42)
[2017-12-02] MEDS: POTASSIUM CHLORIDE 20MEQ/PACKET PO SCH (09:14)
[2017-12-02] MEDS: CARVEDILOL 6.25 MG TABLET PO SCH ×2 (09:14→20:50)
[2017-12-02] MEDS: FLUTICASONE PROPIONATE 50MCG/SPRAY BOTTLE BOTHNSTRLS SCH (09:15)
[2017-12-02] MEDS: APIXABAN 5 MG TABLET PO SCH ×2 (14:16→20:50)
[2017-12-02 20:00] VITALS: BP 132/54
[2017-12-02] MEDS: ATORVASTATIN CALCIUM 10MG TABLET PO SCH (20:49)
[2017-12-03 06:58] LABS: BASOPHILS % 0.8 % (0.0-2.0); EOSINOPHILS % 2.2 % (0.0-5.0); HEMATOCRIT. 34.4 % (36.0-48.0); HEMOGLOBIN. 11.5 g/dL (12.0-16.0); LYMPHOCYTES % 29.4 % (20.0-50.0); MEAN CORPUSCULAR HEMOGLOBIN 27.1 pg (28.0-32.0); MEAN CORPUSCULAR VOLUME 81.4 fL (81.0-99.0); MONOCYTES % 10.4 % (2.0-8.0); NEUTROPHILS % 57.2 % (40.0-76.0); RED BLOOD CELL COUNT 4.23 mill/uL (4.2-5.4); RED CELL DISTRIBUTION WIDTH 16.5 % (11.6-14.6)
[2017-12-03 07:11] LABS: CHLORIDE 104 mEq/L (98-107)
[2017-12-03 07:21] LABS: PHOSPHORUS 3.2 mg/dL (2.5-4.9)
[2017-12-03 08:00] VITALS: BP 141/75
[2017-12-03] MEDS: FLUTICASONE PROPIONATE 50MCG/SPRAY BOTTLE BOTHNSTRLS SCH (09:29)
[2017-12-03] MEDS: ASPIRIN 81MG EC TABLET PO SCH (09:30)
[2017-12-03] MEDS: ZINC SULFATE 220 MG ( 50 ) CAPSULE PO SCH (09:30)
[2017-12-03] MEDS: FAMOTIDINE 20MG TABLET PO SCH (09:30)
[2017-12-03] MEDS: POTASSIUM CHLORIDE 20MEQ/PACKET PO SCH (09:30)
[2017-12-03] MEDS: DOCUSATE SODIUM 100MG CAPSULE PO SCH ×2 (09:30→16:16)
[2017-12-03] MEDS: ASCORBIC ACID 500 MG TABLET PO SCH ×2 (09:30→21:45)
[2017-12-03] MEDS: FUROSEMIDE 20MG TABLET PO SCH (09:30)
[2017-12-03] MEDS: CARVEDILOL 6.25 MG TABLET PO SCH ×2 (09:31→21:00)
[2017-12-03] MEDS: LOSARTAN POTASSIUM 25 MG TABLET PO SCH ×2 (09:31→21:00)
[2017-12-03] MEDS: APIXABAN 5 MG TABLET PO SCH ×2 (09:31→21:45)
[2017-12-03] MEDS: GABAPENTIN 100MG CAPSULE PO SCH ×3 (09:31→16:16)
[2017-12-03 20:00] VITALS: BP 109/63
[2017-12-03] MEDS: ATORVASTATIN CALCIUM 10MG TABLET PO SCH (21:45)
[2017-12-04 06:54] LABS: BASOPHILS % 0.9 % (0.0-2.0); EOSINOPHILS % 2.1 % (0.0-5.0); HEMATOCRIT. 34.9 % (36.0-48.0); HEMOGLOBIN. 11.6 g/dL (12.0-16.0); LYMPHOCYTES % 28.1 % (20.0-50.0); MEAN CORPUSCULAR VOLUME 81.3 fL (81.0-99.0); MONOCYTES % 10.5 % (2.0-8.0); NEUTROPHILS % 58.4 % (40.0-76.0); RED BLOOD CELL COUNT 4.29 mill/uL (4.2-5.4); RED CELL DISTRIBUTION WIDTH 16.7 % (11.6-14.6)
[2017-12-04 07:06] VITALS: BP 151/58
[2017-12-04] MEDS: LOSARTAN POTASSIUM 25 MG TABLET PO SCH ×2 (09:02→21:00)
[2017-12-04] MEDS: ASCORBIC ACID 500 MG TABLET PO SCH ×2 (09:03→20:48)
[2017-12-04] MEDS: DOCUSATE SODIUM 100MG CAPSULE PO SCH ×2 (09:03→16:24)
[2017-12-04] MEDS: APIXABAN 5 MG TABLET PO SCH ×2 (09:03→20:48)
[2017-12-04] MEDS: CARVEDILOL 6.25 MG TABLET PO SCH ×2 (09:03→21:00)
[2017-12-04] MEDS: FUROSEMIDE 20MG TABLET PO SCH (09:03)
[2017-12-04] MEDS: ZINC SULFATE 220 MG ( 50 ) CAPSULE PO SCH (09:03)
[2017-12-04] MEDS: GABAPENTIN 100MG CAPSULE PO SCH ×4 (09:03→16:30)
[2017-12-04] MEDS: ASPIRIN 81MG EC TABLET PO SCH (09:03)
[2017-12-04] MEDS: FAMOTIDINE 20MG TABLET PO SCH (09:03)
[2017-12-04] MEDS: POTASSIUM CHLORIDE 20MEQ/PACKET PO SCH (09:03)
[2017-12-04] MEDS: FLUTICASONE PROPIONATE 50MCG/SPRAY BOTTLE BOTHNSTRLS SCH (09:05)
[2017-12-04 20:00] VITALS: BP 102/66
[2017-12-04] MEDS: ATORVASTATIN CALCIUM 10MG TABLET PO SCH (20:48)
[2017-12-05 07:30] LABS: HEMATOCRIT. 34.3 % (36.0-48.0); HEMOGLOBIN. 11.4 g/dL (12.0-16.0); MEAN CORPUSCULAR VOLUME 81.7 fL (81.0-99.0); RED CELL DISTRIBUTION WIDTH 16.7 % (11.6-14.6)
[2017-12-05 07:47] LABS: PLATELET 74 x1000/uL (130-400)
[2017-12-05 07:50] LABS: CHLORIDE 108 mEq/L (98-107)
[2017-12-05 08:00] VITALS: BP 151/68
[2017-12-05] MEDS: FUROSEMIDE 20MG TABLET PO SCH (08:35)
[2017-12-05] MEDS: GABAPENTIN 100MG CAPSULE PO SCH ×3 (08:35→17:00)
[2017-12-05] MEDS: ASCORBIC ACID 500 MG TABLET PO SCH ×2 (08:35→21:26)
[2017-12-05] MEDS: DOCUSATE SODIUM 100MG CAPSULE PO SCH ×2 (08:35→17:00)
[2017-12-05] MEDS: FAMOTIDINE 20MG TABLET PO SCH (08:35)
[2017-12-05] MEDS: ZINC SULFATE 220 MG ( 50 ) CAPSULE PO SCH (08:35)
[2017-12-05] MEDS: FLUTICASONE PROPIONATE 50MCG/SPRAY BOTTLE BOTHNSTRLS SCH (08:35)
[2017-12-05] MEDS: ASPIRIN 81MG EC TABLET PO SCH (08:36)
[2017-12-05] MEDS: CARVEDILOL 6.25 MG TABLET PO SCH ×2 (08:36→21:26)
[2017-12-05] MEDS: LOSARTAN POTASSIUM 25 MG TABLET PO SCH ×2 (08:36→21:26)
[2017-12-05] MEDS: SPIRONOLACTONE 25MG TABLET PO SCH (08:36)
[2017-12-05] MEDS: APIXABAN 5 MG TABLET PO SCH ×2 (09:12→21:26)
[2017-12-05] MEDS: NA PHOS,M-B/NA PHOS,DI-BA ENEMA 118ML PR PRN (14:04)
[2017-12-05 14:07] LABS: PLATELET ESTIMATE MARKEDLY DECREASED
[2017-12-05] MEDS: OXYCODONE HCL 5MG TABLET PO PRN (15:30)
[2017-12-05] MEDS: MAGNESIUM/ALUMINUM HYDROXIDE/SIMETHICONE 30ML UDC PO PRN (15:44)
[2017-12-05 20:00] VITALS: BP 150/81
[2017-12-05] MEDS: ATORVASTATIN CALCIUM 10MG TABLET PO SCH (21:26)
[2017-12-06 08:00] VITALS: BP 147/77
[2017-12-06] MEDS: ACETAMINOPHEN 325MG TABLET PO PRN ×2 (08:17→16:03)
[2017-12-06] MEDS: SPIRONOLACTONE 25MG TABLET PO SCH (09:00)
[2017-12-06] MEDS: FUROSEMIDE 20MG TABLET PO SCH (09:00)
[2017-12-06] MEDS: FAMOTIDINE 20MG TABLET PO SCH (09:00)
[2017-12-06] MEDS: ASPIRIN 81MG EC TABLET PO SCH (09:00)
[2017-12-06] MEDS: APIXABAN 5 MG TABLET PO SCH ×2 (09:00→21:26)
[2017-12-06] MEDS: CARVEDILOL 6.25 MG TABLET PO SCH ×2 (09:00→21:25)
[2017-12-06] MEDS: LOSARTAN POTASSIUM 25 MG TABLET PO SCH ×2 (09:00→21:26)
[2017-12-06] MEDS: ZINC SULFATE 220 MG ( 50 ) CAPSULE PO SCH (09:00)
[2017-12-06] MEDS: ASCORBIC ACID 500 MG TABLET PO SCH ×2 (09:00→21:26)
[2017-12-06] MEDS: DOCUSATE SODIUM 100MG CAPSULE PO SCH ×2 (09:00→17:00)
[2017-12-06 09:29] LABS: HEMATOCRIT 36.8 % (36.0-48.0); MEAN CORPUSCULAR HEMOGLOBIN 26.5 pg (28.0-32.0); MEAN CORPUSCULAR VOLUME 81.4 fL (81.0-99.0); PLATELET 87 x1000/uL (130-400); RED BLOOD CELL COUNT 4.53 mill/uL (4.2-5.4); RED CELL DISTRIBUTION WIDTH 16.9 % (11.6-14.6)
[2017-12-06 09:48] LABS: CHLORIDE 104 mEq/L (98-107)
[2017-12-06] MEDS: GABAPENTIN 100MG CAPSULE PO SCH ×3 (12:31→17:00)
[2017-12-06] MEDS: OXYCODONE HCL 5MG TABLET PO PRN (12:51)
[2017-12-06] MEDS ORDERED: DIATR MEGLU/DIATRIZOATE SOLN 30ML PO SCH (13:15)
[2017-12-06 13:22] LABS: CLARITY URINE CLEAR (CLEAR); COLOR URINE DARK YELLOW (YELLOW); KETONES URINE TRACE (NEGATIVE); LEUKOCYTE ESTERASE URINE TRACE (NEGATIVE); NITRITE URINE NEGATIVE (NEGATIVE); OCCULT BLOOD URINE NEGATIVE (NEGATIVE); PH URINE 6.5 (4.5-8.0); PROTEIN URINE NEGATIVE (NEGATIVE); SPECIFIC GRAVITY URINE 1.024 (1.005-1.030)
[2017-12-06] MEDS ORDERED: DIATR MEGLU/DIATRIZOATE SOLN 30ML PO NR (13:30)
[2017-12-06] MEDS: FLUCONAZOLE 200MG TABLET PO SCH (13:36)
[2017-12-06] MEDS: DEXT 5%/0.45% NACL 1000ML 1,000 ML IV SCH (15:49)
[2017-12-06] MEDS: PIPERACILLIN/TAZ 3.375G PREMIX 50 ML IV SCH ×2 (15:49→20:26)
[2017-12-06] MEDS ORDERED: FUROSEMIDE 20MG/2ML VIAL IVP NR (17:45)
[2017-12-06 20:00] VITALS: BP 138/83
[2017-12-06] MEDS: ATORVASTATIN CALCIUM 10MG TABLET PO SCH (21:25)
[2017-12-07] MEDS: PIPERACILLIN/TAZ 3.375G PREMIX 50 ML IV SCH ×4 (01:30→20:43)
[2017-12-07 06:12] LABS: HEMATOCRIT. 34.7 % (36.0-48.0); HEMOGLOBIN. 11.7 g/dL (12.0-16.0); MEAN CORPUSCULAR HEMOGLOBIN 27.4 pg (28.0-32.0); MEAN CORPUSCULAR VOLUME 81.4 fL (81.0-99.0); MEAN PLATELET VOLUME 10.7 fl (7.4-10.4); RED BLOOD CELL COUNT 4.26 mill/uL (4.2-5.4); RED CELL DISTRIBUTION WIDTH 16.6 % (11.6-14.6)
[2017-12-07 06:31] LABS: CHLORIDE 102 mEq/L (98-107)
[2017-12-07] MEDS: DEXT 5%/0.45% NACL 1000ML 1,000 ML IV SCH (06:55)
[2017-12-07 08:10] VITALS: BP 121/73
[2017-12-07] MEDS ORDERED: POTASSIUM CHLORIDE 20MEQ TABLET SR PO NR (08:15)
[2017-12-07] MEDS: ASPIRIN 81MG EC TABLET PO SCH (09:00)
[2017-12-07] MEDS: DOCUSATE SODIUM 100MG CAPSULE PO SCH ×2 (09:00→16:40)
[2017-12-07] MEDS: ASCORBIC ACID 500 MG TABLET PO SCH ×2 (09:00→20:44)
[2017-12-07] MEDS ORDERED: POTASSIUM CHLORIDE 20MEQ TABLET SR PO ONE (09:00)
[2017-12-07] MEDS: CARVEDILOL 6.25 MG TABLET PO SCH ×2 (09:00→21:09)
[2017-12-07] MEDS: ERGOCALCIFEROL 50000UNITS CAPSULE PO SCH (09:00)
[2017-12-07] MEDS: GABAPENTIN 100MG CAPSULE PO SCH ×3 (09:00→16:40)
[2017-12-07] MEDS: FLUCONAZOLE 200MG TABLET PO SCH (09:00)
[2017-12-07] MEDS: APIXABAN 5 MG TABLET PO SCH ×2 (09:00→20:44)
[2017-12-07] MEDS: ZINC SULFATE 220 MG ( 50 ) CAPSULE PO SCH (09:00)
[2017-12-07] MEDS: LOSARTAN POTASSIUM 25 MG TABLET PO SCH ×2 (09:00→21:30)
[2017-12-07] MEDS: FAMOTIDINE 20MG TABLET PO SCH (09:00)
[2017-12-07] MEDS: MAGNESIUM/ALUMINUM HYDROXIDE/SIMETHICONE 30ML UDC PO PRN (09:53)
[2017-12-07] MEDS ORDERED: OXYCODONE HCL 5MG TABLET PO PRN (10:15)
[2017-12-07 10:28] LABS: PLATELET ESTIMATE NORMAL
[2017-12-07 10:29] LABS: PLATELET 75 x1000/uL (130-400)
[2017-12-07] MEDS ORDERED: BISACODYL 10MG SUPP PR NR (13:15)
[2017-12-07] MEDS: LACTULOSE 20G/30ML UDC PO SCH ×3 (13:44→20:44)
[2017-12-07] MEDS ORDERED: DEXT 5%/0.45% NACL KCL 40MEQ/L 1,000 ML IV ONE (16:00)
[2017-12-07 20:00] VITALS: BP 126/60
[2017-12-07] MEDS: ATORVASTATIN CALCIUM 10MG TABLET PO SCH (20:44)
[2017-12-07 21:30] VITALS: BP 135/63
[2017-12-08] MEDS: PIPERACILLIN/TAZ 3.375G PREMIX 50 ML IV SCH ×4 (01:02→19:34)
[2017-12-08 06:38] LABS: BASOPHILS % 0.8 % (0.0-2.0); EOSINOPHILS % 3.4 % (0.0-5.0); HEMATOCRIT. 33.9 % (36.0-48.0); HEMOGLOBIN. 11.5 g/dL (12.0-16.0); MEAN CORPUSCULAR HEMOGLOBIN 27.4 pg (28.0-32.0); MEAN CORPUSCULAR VOLUME 81.1 fL (81.0-99.0); MEAN PLATELET VOLUME 10.5 fl (7.4-10.4); MONOCYTES % 10.8 % (2.0-8.0); PLATELET 77 x1000/uL (130-400); RED BLOOD CELL COUNT 4.18 mill/uL (4.2-5.4); RED CELL DISTRIBUTION WIDTH 17.2 % (11.6-14.6)
[2017-12-08 06:44] LABS: CHLORIDE 106 mEq/L (98-107)
[2017-12-08 08:00] VITALS: BP 128/74
[2017-12-08] MEDS: ZINC SULFATE 220 MG ( 50 ) CAPSULE PO SCH (09:05)
[2017-12-08] MEDS: ASPIRIN 81MG EC TABLET PO SCH (09:05)
[2017-12-08] MEDS: GABAPENTIN 100MG CAPSULE PO SCH ×3 (09:05→18:10)
[2017-12-08] MEDS: LOSARTAN POTASSIUM 25 MG TABLET PO SCH ×2 (09:05→21:33)
[2017-12-08] MEDS: ASCORBIC ACID 500 MG TABLET PO SCH ×2 (09:05→20:57)
[2017-12-08] MEDS: FLUCONAZOLE 200MG TABLET PO SCH (09:05)
[2017-12-08] MEDS: FAMOTIDINE 20MG TABLET PO SCH (09:05)
[2017-12-08] MEDS: DOCUSATE SODIUM 100MG CAPSULE PO SCH ×2 (09:05→18:10)
[2017-12-08] MEDS: APIXABAN 5 MG TABLET PO SCH ×2 (09:05→20:57)
[2017-12-08] MEDS: CARVEDILOL 6.25 MG TABLET PO SCH ×2 (09:06→20:57)
[2017-12-08] MEDS: DEXT 5%/0.45% NACL 1000ML 1,000 ML IV SCH ×2 (13:03→13:29)
[2017-12-08] MEDS ORDERED: POTASSIUM CHLORIDE 20MEQ TABLET SR PO NR (15:45)
[2017-12-08 20:00] VITALS: BP 130/61
[2017-12-08] MEDS: ATORVASTATIN CALCIUM 10MG TABLET PO SCH (20:57)
[2017-12-08 21:33] VITALS: BP 144/64
[2017-12-09] MEDS: PIPERACILLIN/TAZ 3.375G PREMIX 50 ML IV SCH ×3 (01:40→14:05)
[2017-12-09] MEDS: DEXT 5%/0.45% NACL 1000ML 1,000 ML IV SCH (05:51)
[2017-12-09 06:48] LABS: HEMATOCRIT. 33.7 % (36.0-48.0); HEMOGLOBIN. 11.3 g/dL (12.0-16.0); MEAN CORPUSCULAR HEMOGLOBIN 27.2 pg (28.0-32.0); MEAN CORPUSCULAR VOLUME 81.4 fL (81.0-99.0); RED BLOOD CELL COUNT 4.14 mill/uL (4.2-5.4); RED CELL DISTRIBUTION WIDTH 17.6 % (11.6-14.6)
[2017-12-09 07:06] LABS: CHLORIDE 107 mEq/L (98-107)
[2017-12-09 07:15] LABS: PHOSPHORUS 2.7 mg/dL (2.5-4.9)
[2017-12-09 08:00] VITALS: BP 147/86
[2017-12-09] MEDS: GABAPENTIN 100MG CAPSULE PO SCH ×3 (08:54→17:19)
[2017-12-09] MEDS: LOSARTAN POTASSIUM 25 MG TABLET PO SCH ×2 (08:54→21:00)
[2017-12-09] MEDS: DOCUSATE SODIUM 100MG CAPSULE PO SCH ×2 (08:55→17:19)
[2017-12-09] MEDS: FLUCONAZOLE 200MG TABLET PO SCH (08:55)
[2017-12-09] MEDS: APIXABAN 5 MG TABLET PO SCH ×2 (08:55→21:22)
[2017-12-09] MEDS: FAMOTIDINE 20MG TABLET PO SCH (08:55)
[2017-12-09] MEDS: ZINC SULFATE 220 MG ( 50 ) CAPSULE PO SCH (08:55)
[2017-12-09] MEDS: ASCORBIC ACID 500 MG TABLET PO SCH ×2 (08:55→21:22)
[2017-12-09] MEDS: CARVEDILOL 6.25 MG TABLET PO SCH ×2 (08:55→21:23)
[2017-12-09] MEDS: ASPIRIN 81MG EC TABLET PO SCH (08:55)
[2017-12-09 10:16] LABS: PLATELET 62 x1000/uL (130-400)
[2017-12-09 10:21] LABS: PLATELET ESTIMATE SLIGHTLY DECREASED
[2017-12-09] MEDS ORDERED: POTASSIUM CHLORIDE 20MEQ TABLET SR PO NR (15:10)
[2017-12-09 20:00] VITALS: BP 146/82
[2017-12-09] MEDS: ATORVASTATIN CALCIUM 10MG TABLET PO SCH (21:22)
[2017-12-10 07:25] LABS: BASOPHILS % 1.2 % (0.0-2.0); HEMATOCRIT. 35.1 % (36.0-48.0); HEMOGLOBIN. 11.6 g/dL (12.0-16.0); LYMPHOCYTES % 27.4 % (20.0-50.0); MEAN CORPUSCULAR HEMOGLOBIN 26.8 pg (28.0-32.0); MEAN CORPUSCULAR VOLUME 81.4 fL (81.0-99.0); MEAN PLATELET VOLUME 10.9 fl (7.4-10.4); MONOCYTES % 10.4 % (2.0-8.0); PLATELET 67 x1000/uL (130-400); RED BLOOD CELL COUNT 4.31 mill/uL (4.2-5.4)
[2017-12-10 07:41] LABS: CHLORIDE 108 mEq/L (98-107)
[2017-12-10 07:57] VITALS: BP 167/81
[2017-12-10] MEDS: ZINC SULFATE 220 MG ( 50 ) CAPSULE PO SCH (08:29)
[2017-12-10] MEDS: DOCUSATE SODIUM 100MG CAPSULE PO SCH (08:29)
[2017-12-10] MEDS: CARVEDILOL 6.25 MG TABLET PO SCH (08:29)
[2017-12-10] MEDS: GABAPENTIN 100MG CAPSULE PO SCH (08:30)
[2017-12-10] MEDS: FAMOTIDINE 20MG TABLET PO SCH (08:30)
[2017-12-10] MEDS: LOSARTAN POTASSIUM 25 MG TABLET PO SCH (08:30)
[2017-12-10] MEDS: ASCORBIC ACID 500 MG TABLET PO SCH (08:30)
[2017-12-10] MEDS ORDERED: LEVETIRACETAM 500MG TABLET PO SCH (09:00)
[2017-12-10 09:20] VITALS: BP 145/75
[2017-12-10] MEDS ORDERED: FAMO20TA8 PO (13:41)
[2017-12-10] MEDS ORDERED: GABA-529 MT (13:41)
[2017-12-10] MEDS ORDERED: KEPP500 MT (13:43)
[2017-12-10] MEDS ORDERED: LOSA25TA12 MT (13:44)
[2017-12-10] MEDS ORDERED: ZINC220T MT (13:46)
[2017-12-11 09:06] LABS: IMMUNOGLOBULIN A 259 mg/dL (64-422); IMMUNOGLOBULIN M 62 mg/dL (26-217)
[2017-12-11 19:11] LABS: ANTI-NUCLEAR ANTIBODIES DIRECT Negative (Negative)
[2017-12-12 08:18] LABS: IMMUNOGLOBULIN G 1150 mg/dL (700-1600)
== END 2017-12-10 09:45 | DRG 64 ==
PROVIDERS: ADMIT Physical Medicine & Rehabilitation Spinal Cord Injury Medicine; ATTEND Internal Medicine
DX: I63.239 Cerebral infarction due to unspecified occlusion or stenosis of unspecified carotid artery (principal); J69.0 Pneumonitis due to inhalation of food and vomit; J96.90 Respiratory failure, unspecified, unspecified whether with hypoxia or hypercapnia; I61.1 Nontraumatic intracerebral hemorrhage in hemisphere, cortical; G81.91 Hemiplegia, unspecified affecting right dominant side; R41.4 Neurologic neglect syndrome; I42.0 Dilated cardiomyopathy; R17 Unspecified jaundice; I50.22 Chronic systolic (congestive) heart failure; N17.9 Acute kidney failure, unspecified; B37.49 Other urogenital candidiasis; R47.01 Aphasia; R13.10 Dysphagia, unspecified; R47.1 Dysarthria and anarthria; E78.00 Pure hypercholesterolemia, unspecified; H53.469 Homonymous bilateral field defects, unspecified side; R53.81 Other malaise; I11.0 Hypertensive heart disease with heart failure; R74.8 Abnormal levels of other serum enzymes; E11.9 Type 2 diabetes mellitus without complications; E87.6 Hypokalemia; I25.10 Atherosclerotic heart disease of native coronary artery without angina pectoris; D64.9 Anemia, unspecified; D69.6 Thrombocytopenia, unspecified; E78.5 Hyperlipidemia, unspecified; E86.9 Volume depletion, unspecified; I48.91 Unspecified atrial fibrillation; K56.41 Fecal impaction; N20.0 Calculus of kidney; Z96.653 Presence of artificial knee joint, bilateral; K80.20 Calculus of gallbladder without cholecystitis without obstruction; Z82.49 Family history of ischemic heart disease and other diseases of the circulatory system; Z79.01 Long term (current) use of anticoagulants
CPT/HCPCS: 36415; 70450; 71045; 74176; 74230; 80048; 80053; 81003; 82306; 82550; 82728; 82746; 82784; 82962; 83540; 83550; 83690; 83735; 84100; 84134; 84630; 85007; 85025; 85027; 85049; 86038; 86334; 87040; 87086; 87106; 92523; 92610; 92611; 93005; 94640; 97110; 97112; 97116; 97163; 97167; 97530; 97535; A4565; C1893; J1940; J1956; J2543; J3480; J3490; J7050; J7620; Q0162; Q9963; A4315

== ENCOUNTER 2017-12-14 14:40 | Inpatient (IN) | payer MEDICARE, MEDICAID ==
[~2017-12-14] VITALS: Ht 165.1 cm; Wt 72.6 kg
[2017-12-14 14:30] VITALS: BP 112/67
[~2017-12-14 14:40] MED LIST: FAMO20TA8 PO; GABA-529 MT; KEPP500 MT; LOSA25TA12 MT; ZINC220T MT
[2017-12-14] MEDS ORDERED: LORAZEPAM 0.5MG TABLET PO PRN (17:00)
[2017-12-14] MEDS ORDERED: ONDANSETRON HCL 4MG TABLET PO PRN (17:00)
[2017-12-14] MEDS ORDERED: ACETAMINOPHEN 650MG SUPP PR PRN (17:00)
[2017-12-14] MEDS: LOSARTAN POTASSIUM 25 MG TABLET PO SCH (19:03)
[2017-12-14 20:00] VITALS: BP 130/57
[2017-12-14] MEDS: FUROSEMIDE 20MG TABLET PO SCH ×2 (20:41→20:46)
[2017-12-14] MEDS: HYDRALAZINE HCL 25MG TABLET PO SCH ×2 (20:42→20:49)
[2017-12-14] MEDS: ATORVASTATIN CALCIUM 20MG TABLET PO SCH ×2 (20:44→20:45)
[2017-12-14] MEDS: CARVEDILOL 6.25 MG TABLET PO SCH (20:48)
[2017-12-14] MEDS: LEVETIRACETAM 500MG TABLET PO SCH (20:49)
[2017-12-15 06:21] LABS: BASOPHILS % 0.8 % (0.0-2.0); EOSINOPHILS % 2.2 % (0.0-5.0); HEMATOCRIT. 38.1 % (36.0-48.0); HEMOGLOBIN. 12.8 g/dL (12.0-16.0); LYMPHOCYTES % 25.6 % (20.0-50.0); MEAN CORPUSCULAR HEMOGLOBIN 27.5 pg (28.0-32.0); MEAN CORPUSCULAR VOLUME 81.8 fL (81.0-99.0); MONOCYTES % 10.2 % (2.0-8.0); NEUTROPHILS % 61.2 % (40.0-76.0); RED BLOOD CELL COUNT 4.65 mill/uL (4.2-5.4); RED CELL DISTRIBUTION WIDTH 16.8 % (11.6-14.6)
[2017-12-15 07:15] LABS: CHLORIDE 104 mEq/L (98-107)
[2017-12-15 08:00] VITALS: BP 131/55
[2017-12-15 08:09] LABS: CLARITY URINE CLOUDY (CLEAR); COLOR URINE YELLOW (YELLOW); KETONES URINE NEGATIVE (NEGATIVE); LEUKOCYTE ESTERASE URINE 3+ (NEGATIVE); NITRITE URINE NEGATIVE (NEGATIVE); OCCULT BLOOD URINE TRACE (NEGATIVE); PROTEIN URINE TRACE (NEGATIVE); SPECIFIC GRAVITY URINE 1.016 (1.005-1.030)
[2017-12-15] MEDS ORDERED: FAMOTIDINE 20MG TABLET PO ONE ×2 (09:00)
[2017-12-15] MEDS: CARVEDILOL 6.25 MG TABLET PO SCH ×2 (09:26→21:00)
[2017-12-15] MEDS: LEVETIRACETAM 500MG TABLET PO SCH ×2 (09:27→21:54)
[2017-12-15] MEDS: LOSARTAN POTASSIUM 25 MG TABLET PO SCH ×2 (09:27→17:00)
[2017-12-15] MEDS: FAMOTIDINE 20MG TABLET PO SCH (09:27)
[2017-12-15 09:59] LABS: PLATELET 71 x1000/uL (130-400)
[2017-12-15] MEDS: HYDRALAZINE HCL 25MG TABLET PO SCH ×2 (13:34→22:00)
[2017-12-15 20:00] VITALS: BP 94/55
[2017-12-15] MEDS: FUROSEMIDE 20MG TABLET PO SCH (21:54)
[2017-12-15] MEDS: ATORVASTATIN CALCIUM 20MG TABLET PO SCH (21:54)
[2017-12-16] MEDS: HYDRALAZINE HCL 25MG TABLET PO SCH ×3 (06:43→21:43)
[2017-12-16 08:00] VITALS: BP 91/40
[2017-12-16] MEDS: FUROSEMIDE 20MG TABLET PO SCH ×2 (09:00→21:42)
[2017-12-16] MEDS: LOSARTAN POTASSIUM 25 MG TABLET PO SCH ×2 (09:00→17:00)
[2017-12-16] MEDS: CARVEDILOL 6.25 MG TABLET PO SCH ×2 (09:00→21:57)
[2017-12-16] MEDS: FAMOTIDINE 20MG TABLET PO SCH (09:58)
[2017-12-16] MEDS: LEVETIRACETAM 500MG TABLET PO SCH ×2 (09:58→21:42)
[2017-12-16] MEDS: GABAPENTIN 100MG CAPSULE PO SCH ×2 (14:00→21:42)
[2017-12-16 20:00] VITALS: BP 136/66
[2017-12-16] MEDS: ATORVASTATIN CALCIUM 20MG TABLET PO SCH (21:42)
[2017-12-16] MEDS: SULFAMETHOXAZOLE/TRIMETHOPRIM 800/160MG TABLET PO SCH (21:42)
[2017-12-17] MEDS: GABAPENTIN 100MG CAPSULE PO SCH ×3 (06:01→21:38)
[2017-12-17] MEDS: HYDRALAZINE HCL 25MG TABLET PO SCH ×3 (06:01→21:39)
[2017-12-17 08:00] VITALS: BP 143/64
[2017-12-17] MEDS: CARVEDILOL 6.25 MG TABLET PO SCH ×2 (09:30→21:39)
[2017-12-17] MEDS: FAMOTIDINE 20MG TABLET PO SCH (09:30)
[2017-12-17] MEDS: LEVETIRACETAM 500MG TABLET PO SCH ×2 (09:30→21:37)
[2017-12-17] MEDS: FUROSEMIDE 20MG TABLET PO SCH ×2 (09:30→21:37)
[2017-12-17] MEDS: LOSARTAN POTASSIUM 25 MG TABLET PO SCH ×2 (09:30→17:00)
[2017-12-17] MEDS: SULFAMETHOXAZOLE/TRIMETHOPRIM 800/160MG TABLET PO SCH (09:30)
[2017-12-17 20:00] VITALS: BP 150/80
[2017-12-17] MEDS: ATORVASTATIN CALCIUM 20MG TABLET PO SCH (21:37)
[2017-12-17] MEDS: NITROFURANTOIN 100MG M/M CAPSULE PO SCH (21:37)
[2017-12-18] MEDS: GABAPENTIN 100MG CAPSULE PO SCH ×3 (06:00→21:37)
[2017-12-18] MEDS: HYDRALAZINE HCL 25MG TABLET PO SCH ×3 (07:01→21:38)
[2017-12-18 08:00] VITALS: BP 138/59
[2017-12-18] MEDS: LEVETIRACETAM 500MG TABLET PO SCH ×2 (08:45→21:37)
[2017-12-18] MEDS: FUROSEMIDE 20MG TABLET PO SCH ×2 (08:45→21:38)
[2017-12-18] MEDS: LOSARTAN POTASSIUM 25 MG TABLET PO SCH (08:45)
[2017-12-18] MEDS: FAMOTIDINE 20MG TABLET PO SCH (08:45)
[2017-12-18] MEDS: NITROFURANTOIN 100MG M/M CAPSULE PO SCH ×2 (08:45→21:37)
[2017-12-18] MEDS: CARVEDILOL 6.25 MG TABLET PO SCH (08:46)
[2017-12-18 20:00] VITALS: BP 112/55
[2017-12-18] MEDS: ATORVASTATIN CALCIUM 20MG TABLET PO SCH (21:37)
[2017-12-18] MEDS: LOSARTAN POTASSIUM 50 MG TABLET PO SCH (21:38)
[2017-12-18] MEDS: CARVEDILOL 12.5MG TABLET PO SCH (21:38)
[2017-12-19] MEDS: GABAPENTIN 100MG CAPSULE PO SCH ×3 (05:54→21:18)
[2017-12-19] MEDS: HYDRALAZINE HCL 25MG TABLET PO SCH ×3 (05:54→21:19)
[2017-12-19 07:13] LABS: BASOPHILS % 0.9 % (0.0-2.0); EOSINOPHILS % 2.3 % (0.0-5.0); HEMATOCRIT. 37.1 % (36.0-48.0); HEMOGLOBIN. 12.1 g/dL (12.0-16.0); LYMPHOCYTES % 33.9 % (20.0-50.0); MEAN CORPUSCULAR HEMOGLOBIN 26.6 pg (28.0-32.0); MEAN CORPUSCULAR VOLUME 81.6 fL (81.0-99.0); MONOCYTES % 9.7 % (2.0-8.0); NEUTROPHILS % 53.2 % (40.0-76.0); RED BLOOD CELL COUNT 4.55 mill/uL (4.2-5.4); RED CELL DISTRIBUTION WIDTH 17.4 % (11.6-14.6)
[2017-12-19 08:00] VITALS: BP 121/67
[2017-12-19] MEDS: NITROFURANTOIN 100MG M/M CAPSULE PO SCH ×2 (08:41→21:18)
[2017-12-19] MEDS: FUROSEMIDE 20MG TABLET PO SCH (08:41)
[2017-12-19] MEDS: CARVEDILOL 12.5MG TABLET PO SCH ×2 (08:41→21:00)
[2017-12-19] MEDS: LOSARTAN POTASSIUM 50 MG TABLET PO SCH ×2 (08:42→21:00)
[2017-12-19] MEDS: LEVETIRACETAM 500MG TABLET PO SCH ×2 (08:42→21:18)
[2017-12-19] MEDS: FAMOTIDINE 20MG TABLET PO SCH (08:42)
[2017-12-19] MEDS ORDERED: HYDROCODONE/ACETAMINOPHEN 5/325MG TABLET PO PRN (19:15)
[2017-12-19 19:47] VITALS: BP 118/64
[2017-12-19] MEDS: ATORVASTATIN CALCIUM 20MG TABLET PO SCH (21:18)
[2017-12-20] MEDS: GABAPENTIN 100MG CAPSULE PO SCH ×3 (05:55→21:34)
[2017-12-20] MEDS: HYDRALAZINE HCL 25MG TABLET PO SCH ×3 (05:55→22:50)
[2017-12-20 07:00] LABS: BASOPHILS % 1.1 % (0.0-2.0); EOSINOPHILS % 2.1 % (0.0-5.0); HEMATOCRIT. 37.3 % (36.0-48.0); HEMOGLOBIN. 12.2 g/dL (12.0-16.0); LYMPHOCYTES % 28.2 % (20.0-50.0); MEAN CORPUSCULAR VOLUME 82.6 fL (81.0-99.0); MEAN PLATELET VOLUME 10.6 fl (7.4-10.4); MONOCYTES % 5.6 % (2.0-8.0); PLATELET 94 x1000/uL (130-400); RED BLOOD CELL COUNT 4.52 mill/uL (4.2-5.4); RED CELL DISTRIBUTION WIDTH 17.3 % (11.6-14.6)
[2017-12-20 08:00] VITALS: BP 116/54
[2017-12-20] MEDS ORDERED: POTASSIUM CHLORIDE 20MEQ/PACKET PO SCH (08:00)
[2017-12-20] MEDS: FAMOTIDINE 20MG TABLET PO SCH (09:35)
[2017-12-20] MEDS: LEVETIRACETAM 500MG TABLET PO SCH ×2 (09:35→21:33)
[2017-12-20] MEDS: LOSARTAN POTASSIUM 50 MG TABLET PO SCH ×2 (09:35→21:33)
[2017-12-20] MEDS: NITROFURANTOIN 100MG M/M CAPSULE PO SCH ×2 (09:36→21:31)
[2017-12-20] MEDS: CARVEDILOL 12.5MG TABLET PO SCH ×2 (09:36→21:33)
[2017-12-20 20:00] VITALS: BP 140/97
[2017-12-20] MEDS: ATORVASTATIN CALCIUM 20MG TABLET PO SCH (21:33)
[2017-12-21] MEDS: HYDRALAZINE HCL 25MG TABLET PO SCH ×3 (06:21→22:42)
[2017-12-21] MEDS: GABAPENTIN 100MG CAPSULE PO SCH ×3 (06:21→21:31)
[2017-12-21 08:00] VITALS: BP 136/57
[2017-12-21] MEDS: NITROFURANTOIN 100MG M/M CAPSULE PO SCH ×2 (08:23→21:31)
[2017-12-21] MEDS: FAMOTIDINE 20MG TABLET PO SCH (08:23)
[2017-12-21] MEDS: LEVETIRACETAM 500MG TABLET PO SCH ×2 (08:23→21:31)
[2017-12-21] MEDS: LOSARTAN POTASSIUM 50 MG TABLET PO SCH ×2 (08:24→22:41)
[2017-12-21] MEDS: CARVEDILOL 12.5MG TABLET PO SCH ×2 (08:29→21:30)
[2017-12-21 20:00] VITALS: BP_SYST 127; BP_DIAS 67; BP_DIAS 69
[2017-12-21] MEDS: ATORVASTATIN CALCIUM 20MG TABLET PO SCH (21:31)
[2017-12-22] MEDS: GABAPENTIN 100MG CAPSULE PO SCH ×3 (05:34→21:16)
[2017-12-22] MEDS: HYDRALAZINE HCL 25MG TABLET PO SCH ×3 (05:34→22:00)
[2017-12-22 08:00] VITALS: BP 149/71
[2017-12-22] MEDS: NITROFURANTOIN 100MG M/M CAPSULE PO SCH (09:53)
[2017-12-22] MEDS: CARVEDILOL 12.5MG TABLET PO SCH ×2 (09:54→21:16)
[2017-12-22] MEDS: LEVETIRACETAM 500MG TABLET PO SCH ×2 (09:54→21:16)
[2017-12-22] MEDS: FAMOTIDINE 20MG TABLET PO SCH (09:54)
[2017-12-22] MEDS: LOSARTAN POTASSIUM 50 MG TABLET PO SCH ×2 (09:54→21:17)
[2017-12-22 20:00] VITALS: BP 136/66
[2017-12-22] MEDS: ATORVASTATIN CALCIUM 20MG TABLET PO SCH (21:16)
[2017-12-22] MEDS ORDERED: NITROFURANTOIN MACROCRYSTAL 100 MG CAPSULE PO SCH (23:30)
[2017-12-23] MEDS: GABAPENTIN 100MG CAPSULE PO SCH ×3 (05:43→22:06)
[2017-12-23] MEDS: HYDRALAZINE HCL 25MG TABLET PO SCH ×3 (05:44→23:45)
[2017-12-23 07:00] VITALS: BP 157/68
[2017-12-23] MEDS: FAMOTIDINE 20MG TABLET PO SCH (09:21)
[2017-12-23] MEDS: CARVEDILOL 12.5MG TABLET PO SCH ×2 (09:22→22:08)
[2017-12-23] MEDS: LOSARTAN POTASSIUM 50 MG TABLET PO SCH ×2 (09:22→22:07)
[2017-12-23] MEDS: NITROFURANTOIN 100MG M/M CAPSULE PO SCH ×2 (09:22→22:07)
[2017-12-23] MEDS: LEVETIRACETAM 500MG TABLET PO SCH ×2 (09:22→22:07)
[2017-12-23 20:00] VITALS: BP 130/58
[2017-12-23] MEDS: ATORVASTATIN CALCIUM 20MG TABLET PO SCH (22:07)
[2017-12-24] MEDS: GABAPENTIN 100MG CAPSULE PO SCH ×3 (06:13→20:49)
[2017-12-24] MEDS: HYDRALAZINE HCL 25MG TABLET PO SCH ×3 (06:14→20:50)
[2017-12-24 08:00] VITALS: BP 146/72
[2017-12-24] MEDS: FAMOTIDINE 20MG TABLET PO SCH (08:43)
[2017-12-24] MEDS: LOSARTAN POTASSIUM 50 MG TABLET PO SCH ×2 (08:43→20:50)
[2017-12-24] MEDS: NITROFURANTOIN 100MG M/M CAPSULE PO SCH ×2 (08:43→20:49)
[2017-12-24] MEDS: LEVETIRACETAM 500MG TABLET PO SCH ×2 (08:43→20:49)
[2017-12-24] MEDS: CARVEDILOL 12.5MG TABLET PO SCH ×2 (08:44→20:50)
[2017-12-24 20:00] VITALS: BP 151/71
[2017-12-24] MEDS ORDERED: HYDROCODONE/ACETAMINOPHEN 5/325MG TABLET PO PRN (20:00)
[2017-12-24] MEDS: ATORVASTATIN CALCIUM 20MG TABLET PO SCH (20:48)
[2017-12-25] MEDS: GABAPENTIN 100MG CAPSULE PO SCH ×3 (06:21→22:04)
[2017-12-25] MEDS: HYDRALAZINE HCL 25MG TABLET PO SCH ×3 (06:22→22:07)
[2017-12-25 06:52] LABS: BASOPHILS % 1.1 % (0.0-2.0); EOSINOPHILS % 3.8 % (0.0-5.0); HEMATOCRIT. 35.6 % (36.0-48.0); HEMOGLOBIN. 11.8 g/dL (12.0-16.0); LYMPHOCYTES % 28.5 % (20.0-50.0); MEAN CORPUSCULAR HEMOGLOBIN 27.2 pg (28.0-32.0); MEAN PLATELET VOLUME 10.1 fl (7.4-10.4); MONOCYTES % 8.6 % (2.0-8.0); PLATELET 90 x1000/uL (130-400); RED BLOOD CELL COUNT 4.34 mill/uL (4.2-5.4); RED CELL DISTRIBUTION WIDTH 17.3 % (11.6-14.6)
[2017-12-25 07:53] LABS: CHLORIDE 105 mEq/L (98-107)
[2017-12-25 08:00] VITALS: BP 148/65
[2017-12-25] MEDS: LOSARTAN POTASSIUM 50 MG TABLET PO SCH ×2 (09:41→22:07)
[2017-12-25] MEDS: LEVETIRACETAM 500MG TABLET PO SCH ×2 (09:41→22:04)
[2017-12-25] MEDS: FAMOTIDINE 20MG TABLET PO SCH (09:41)
[2017-12-25] MEDS: CARVEDILOL 12.5MG TABLET PO SCH ×2 (09:42→22:07)
[2017-12-25 13:23] VITALS: BP 136/64
[2017-12-25] MEDS: AMLODIPINE 5MG TABLET PO SCH ×2 (13:40→22:07)
[2017-12-25 20:00] VITALS: BP 104/52
[2017-12-25] MEDS: ATORVASTATIN CALCIUM 20MG TABLET PO SCH (22:04)
[2017-12-26] MEDS: GABAPENTIN 100MG CAPSULE PO SCH ×3 (06:16→22:09)
[2017-12-26] MEDS: HYDRALAZINE HCL 25MG TABLET PO SCH ×3 (06:17→23:36)
[2017-12-26 08:00] VITALS: BP 147/58
[2017-12-26] MEDS: CARVEDILOL 12.5MG TABLET PO SCH ×2 (09:00→23:36)
[2017-12-26] MEDS: FAMOTIDINE 20MG TABLET PO SCH (09:27)
[2017-12-26] MEDS: LEVETIRACETAM 500MG TABLET PO SCH ×2 (09:27→22:09)
[2017-12-26] MEDS: AMLODIPINE 5MG TABLET PO SCH ×2 (09:28→22:09)
[2017-12-26] MEDS: LOSARTAN POTASSIUM 50 MG TABLET PO SCH ×2 (09:29→22:09)
[2017-12-26] MEDS: DULOXETINE HCL 20MG DR CAPSULE PO SCH (09:29)
[2017-12-26 20:00] VITALS: BP 137/52
[2017-12-26] MEDS: ATORVASTATIN CALCIUM 20MG TABLET PO SCH (22:09)
[2017-12-27] MEDS: HYDRALAZINE HCL 25MG TABLET PO SCH ×3 (06:48→22:25)
[2017-12-27] MEDS: GABAPENTIN 100MG CAPSULE PO SCH ×3 (06:48→22:24)
[2017-12-27 07:00] VITALS: BP 136/94
[2017-12-27] MEDS: FAMOTIDINE 20MG TABLET PO SCH (08:58)
[2017-12-27] MEDS: DULOXETINE HCL 20MG DR CAPSULE PO SCH (08:59)
[2017-12-27] MEDS: LOSARTAN POTASSIUM 50 MG TABLET PO SCH ×2 (08:59→21:09)
[2017-12-27] MEDS: LEVETIRACETAM 500MG TABLET PO SCH ×2 (08:59→21:10)
[2017-12-27] MEDS: CARVEDILOL 12.5MG TABLET PO SCH ×2 (08:59→21:10)
[2017-12-27] MEDS: AMLODIPINE 5MG TABLET PO SCH ×2 (08:59→21:10)
[2017-12-27 13:30] VITALS: BP 115/57
[2017-12-27 20:00] VITALS: BP 153/71
[2017-12-27] MEDS: ATORVASTATIN CALCIUM 20MG TABLET PO SCH (21:10)
[2017-12-28] MEDS: HYDRALAZINE HCL 25MG TABLET PO SCH ×3 (06:02→22:22)
[2017-12-28] MEDS: GABAPENTIN 100MG CAPSULE PO SCH ×3 (06:02→22:21)
[2017-12-28 08:11] VITALS: BP 136/47
[2017-12-28] MEDS: CARVEDILOL 12.5MG TABLET PO SCH ×2 (08:59→20:27)
[2017-12-28] MEDS: LEVETIRACETAM 500MG TABLET PO SCH ×2 (09:00→20:26)
[2017-12-28] MEDS: AMLODIPINE 5MG TABLET PO SCH ×2 (09:00→20:27)
[2017-12-28] MEDS: FAMOTIDINE 20MG TABLET PO SCH (09:00)
[2017-12-28] MEDS: LOSARTAN POTASSIUM 50 MG TABLET PO SCH ×2 (09:00→20:26)
[2017-12-28] MEDS: DULOXETINE HCL 20MG DR CAPSULE PO SCH (09:00)
[2017-12-28 11:07] LABS: BASOPHILS % 1.3 % (0.0-2.0); EOSINOPHILS % 3.3 % (0.0-5.0); HEMATOCRIT. 37.7 % (36.0-48.0); HEMOGLOBIN. 12.4 g/dL (12.0-16.0); LYMPHOCYTES % 26.2 % (20.0-50.0); MEAN CORPUSCULAR VOLUME 82.1 fL (81.0-99.0); MONOCYTES % 8.1 % (2.0-8.0); NEUTROPHILS % 61.1 % (40.0-76.0); RED BLOOD CELL COUNT 4.58 mill/uL (4.2-5.4); RED CELL DISTRIBUTION WIDTH 17.4 % (11.6-14.6)
[2017-12-28 11:51] LABS: CHLORIDE 107 mEq/L (98-107)
[2017-12-28 12:04] LABS: PLATELET 67 x1000/uL (130-400)
[2017-12-28 12:05] LABS: MEAN PLATELET VOLUME 10.8 fl (7.4-10.4)
[2017-12-28 20:00] VITALS: BP 145/66
[2017-12-28] MEDS: ATORVASTATIN CALCIUM 20MG TABLET PO SCH (20:27)
[2017-12-29] MEDS: GABAPENTIN 100MG CAPSULE PO SCH ×3 (06:38→22:35)
[2017-12-29] MEDS: HYDRALAZINE HCL 25MG TABLET PO SCH ×3 (06:38→22:35)
[2017-12-29 08:00] VITALS: BP 140/60
[2017-12-29] MEDS ORDERED: HYDROCODONE/ACETAMINOPHEN 5/325MG TABLET PO PRN (08:00)
[2017-12-29] MEDS: LOSARTAN POTASSIUM 50 MG TABLET PO SCH ×2 (09:30→21:04)
[2017-12-29] MEDS: FAMOTIDINE 20MG TABLET PO SCH (09:30)
[2017-12-29] MEDS: LEVETIRACETAM 500MG TABLET PO SCH ×2 (09:30→21:05)
[2017-12-29] MEDS: DULOXETINE HCL 20MG DR CAPSULE PO SCH (09:30)
[2017-12-29] MEDS: CARVEDILOL 12.5MG TABLET PO SCH ×2 (09:31→21:05)
[2017-12-29] MEDS: AMLODIPINE 5MG TABLET PO SCH ×2 (09:31→21:05)
[2017-12-29 20:00] VITALS: BP 140/62
[2017-12-29] MEDS: ATORVASTATIN CALCIUM 20MG TABLET PO SCH (21:04)
[2017-12-30] MEDS: HYDRALAZINE HCL 25MG TABLET PO SCH ×3 (05:51→21:39)
[2017-12-30] MEDS: GABAPENTIN 100MG CAPSULE PO SCH ×3 (05:51→21:38)
[2017-12-30 08:00] VITALS: BP 147/61
[2017-12-30] MEDS: LEVETIRACETAM 500MG TABLET PO SCH ×2 (08:49→21:38)
[2017-12-30] MEDS: LOSARTAN POTASSIUM 50 MG TABLET PO SCH ×2 (08:49→21:39)
[2017-12-30] MEDS: CARVEDILOL 12.5MG TABLET PO SCH ×2 (08:49→21:00)
[2017-12-30] MEDS: DULOXETINE HCL 20MG DR CAPSULE PO SCH (08:49)
[2017-12-30] MEDS: FAMOTIDINE 20MG TABLET PO SCH (08:49)
[2017-12-30] MEDS: AMLODIPINE 5MG TABLET PO SCH ×2 (08:50→21:39)
[2017-12-30 20:00] VITALS: BP 123/52
[2017-12-30 21:37] VITALS: BP 148/67
[2017-12-30] MEDS: ATORVASTATIN CALCIUM 20MG TABLET PO SCH (21:39)
[2017-12-31] MEDS: GABAPENTIN 100MG CAPSULE PO SCH ×3 (06:04→21:49)
[2017-12-31] MEDS: HYDRALAZINE HCL 25MG TABLET PO SCH ×3 (06:05→23:26)
[2017-12-31] MEDS: LEVETIRACETAM 500MG TABLET PO SCH ×2 (08:26→21:48)
[2017-12-31] MEDS: LOSARTAN POTASSIUM 50 MG TABLET PO SCH ×2 (08:26→21:49)
[2017-12-31] MEDS: DULOXETINE HCL 20MG DR CAPSULE PO SCH (08:26)
[2017-12-31] MEDS: FAMOTIDINE 20MG TABLET PO SCH (08:26)
[2017-12-31 08:27] VITALS: BP 148/62
[2017-12-31] MEDS: AMLODIPINE 5MG TABLET PO SCH ×2 (08:27→21:49)
[2017-12-31] MEDS: CARVEDILOL 12.5MG TABLET PO SCH ×2 (08:28→21:00)
[2017-12-31 16:00] VITALS: BP 139/63
[2017-12-31 20:00] VITALS: BP 135/66
[2017-12-31] MEDS: ATORVASTATIN CALCIUM 20MG TABLET PO SCH (21:49)
[2018-01-01] MEDS: GABAPENTIN 100MG CAPSULE PO SCH ×2 (05:45→14:00)
[2018-01-01] MEDS: HYDRALAZINE HCL 25MG TABLET PO SCH ×2 (05:45→14:00)
[2018-01-01 07:15] LABS: CHLORIDE 106 mEq/L (98-107)
[2018-01-01 07:37] LABS: BASOPHILS % 0.6 % (0.0-2.0); EOSINOPHILS % 2.8 % (0.0-5.0); HEMATOCRIT. 37.1 % (36.0-48.0); HEMOGLOBIN. 12.3 g/dL (12.0-16.0); LYMPHOCYTES % 27.1 % (20.0-50.0); MEAN CORPUSCULAR HEMOGLOBIN 27.3 pg (28.0-32.0); MEAN CORPUSCULAR VOLUME 82.4 fL (81.0-99.0); MONOCYTES % 10.8 % (2.0-8.0); NEUTROPHILS % 58.7 % (40.0-76.0); RED CELL DISTRIBUTION WIDTH 17.2 % (11.6-14.6)
[2018-01-01 08:00] VITALS: BP 147/62
[2018-01-01] MEDS: DULOXETINE HCL 20MG DR CAPSULE PO SCH (08:40)
[2018-01-01] MEDS: FAMOTIDINE 20MG TABLET PO SCH (08:40)
[2018-01-01] MEDS: LEVETIRACETAM 500MG TABLET PO SCH (08:40)
[2018-01-01] MEDS: AMLODIPINE 5MG TABLET PO SCH (08:40)
[2018-01-01] MEDS: CARVEDILOL 12.5MG TABLET PO SCH (08:44)
[2018-01-01] MEDS: LOSARTAN POTASSIUM 50 MG TABLET PO SCH (08:44)
[2018-01-01] MEDS ORDERED: POTASSIUM CHLORIDE 20MEQ/PACKET PO NR (09:15)
[2018-01-01 11:45] VITALS: BP 147/62
[2018-01-01 12:12] LABS: DRVVT LA 47.2 sec (0.0-47.0)
[2018-01-02 05:30] LABS: DRVVT MIX LA 39.6 sec (0.0-47.0); LUPUS ANTICOAG INTERPRETATION Comment: (.)
[2018-01-02 15:11] LABS: ANTI-CARDIOLIPIN AB IGG < 9 GPL U/mL (0-14); ANTI-CARDIOLIPIN AB IGM < 9 MPL U/mL (0-12)
== END 2018-01-01 17:22 | DRG 64 ==
PROVIDERS: ADMIT Physical Medicine & Rehabilitation Spinal Cord Injury Medicine; ATTEND Internal Medicine
DX: I63.233 Cerebral infarction due to unspecified occlusion or stenosis of bilateral carotid arteries (principal); J96.90 Respiratory failure, unspecified, unspecified whether with hypoxia or hypercapnia; I61.1 Nontraumatic intracerebral hemorrhage in hemisphere, cortical; G81.91 Hemiplegia, unspecified affecting right dominant side; N39.0 Urinary tract infection, site not specified; I42.9 Cardiomyopathy, unspecified; I50.20 Unspecified systolic (congestive) heart failure; N17.9 Acute kidney failure, unspecified; R47.1 Dysarthria and anarthria; R13.10 Dysphagia, unspecified; R47.01 Aphasia; H53.461 Homonymous bilateral field defects, right side; E78.00 Pure hypercholesterolemia, unspecified; R53.81 Other malaise; E11.9 Type 2 diabetes mellitus without complications; D69.6 Thrombocytopenia, unspecified; R26.9 Unspecified abnormalities of gait and mobility; E86.9 Volume depletion, unspecified; E87.6 Hypokalemia; I11.0 Hypertensive heart disease with heart failure; Z87.440 Personal history of urinary (tract) infections; Z79.899 Other long term (current) drug therapy; Z82.49 Family history of ischemic heart disease and other diseases of the circulatory system; B96.20 Unspecified Escherichia coli [E. coli] as the cause of diseases classified elsewhere; B95.2 Enterococcus as the cause of diseases classified elsewhere; Z16.12 Extended spectrum beta lactamase (ESBL) resistance; D64.9 Anemia, unspecified; Z60.2 Problems related to living alone; E78.5 Hyperlipidemia, unspecified; F01.50 Vascular dementia, unspecified severity, without behavioral disturbance, psychotic disturbance, mood disturbance, and anxiety; F32.9 Major depressive disorder, single episode, unspecified; I25.10 Atherosclerotic heart disease of native coronary artery without angina pectoris; I48.0 Paroxysmal atrial fibrillation; K56.41 Fecal impaction; Z79.01 Long term (current) use of anticoagulants; Z96.653 Presence of artificial knee joint, bilateral
CPT/HCPCS: 36415; 80048; 80053; 81003; 83735; 85025; 85049; 85613; 85732; 86147; 87077; 87086; 87186; 92523; 92610; 93970; 97110; 97112; 97116; 97163; 97166; 97530; 97535; 97760; A4565; J7030; 97763-GO; A5200

== ENCOUNTER 2020-09-06 16:20 | Inpatient (IN) | payer MEDICARE, MEDICAID ==
[~2020-09-06] VITALS: Ht 134.6 cm; Wt 64.0 kg
[~2020-09-06 16:20] MED LIST changes: -LOSA25TA12 MT; +LOSA25TA26 MT; -ZINC220T MT; +ZINC220T4 MT
[2020-09-06 17:57] LABS: BASOPHILS % 0.8 % (0.0-2.0); EOSINOPHILS % 1.5 % (0.0-5.0); HEMATOCRIT. 42.4 % (36.0-48.0); HEMOGLOBIN. 14.2 g/dL (12.0-16.0); LYMPHOCYTES % 21.5 % (20.0-50.0); MEAN CORPUSCULAR HEMOGLOBIN 28.5 pg (28.0-32.0); MEAN CORPUSCULAR VOLUME 85.3 fL (81.0-99.0); MEAN PLATELET VOLUME 10.2 fl (7.4-10.4); MONOCYTES % 5.6 % (2.0-8.0); NEUTROPHILS % 70.6 % (40.0-76.0); PLATELET 127 x1000/uL (130-400); RED BLOOD CELL COUNT 4.97 mill/uL (4.2-5.4); RED CELL DISTRIBUTION WIDTH 14.5 % (11.6-14.6)
[2020-09-06 18:03] LABS: CHLORIDE 107 mEq/L (98-107)
[2020-09-06] MEDS ORDERED: ACETAMINOPHEN 325MG TABLET PO ONE (21:30)
[2020-09-06 22:36] LABS: CLARITY URINE CLOUDY (CLEAR); COLOR URINE YELLOW (YELLOW); KETONES URINE 1+ (NEGATIVE); LEUKOCYTE ESTERASE URINE 1+ (NEGATIVE); NITRITE URINE NEGATIVE (NEGATIVE); OCCULT BLOOD URINE NEGATIVE (NEGATIVE); PH URINE 5.5 (4.5-8.0); PROTEIN URINE TRACE (NEGATIVE); SPECIFIC GRAVITY URINE 1.024 (1.005-1.030)
[2020-09-06] MEDS ORDERED: ASPIRIN 325MG EC TABLET PO ONE (23:45)
[2020-09-06] MEDS ORDERED: CEFTRIAXONE 1 G PREMIX 50 ML IV ONE (23:45)
[2020-09-07 05:17] VITALS: BP 137/68
[2020-09-07 05:40] VITALS: BP 137/68
[2020-09-07] MEDS ORDERED: ACETAMINOPHEN 650MG/20.3ML UDC PO PRN (07:00)
[2020-09-07 08:00] VITALS: BP 133/67
[2020-09-07] MEDS ORDERED: ENOXAPARIN 30MG/0.3ML SYR SUBCUT SCH (09:00)
[2020-09-07] MEDS ORDERED: ASPIRIN 81MG TABLET PO SCH (09:00)
[2020-09-07] MEDS: LOSARTAN POTASSIUM 25 MG TABLET PO SCH (09:48)
[2020-09-07 13:18] LABS: HEMOGLOBIN. 12.4 g/dL (12.0-16.0); MEAN CORPUSCULAR HEMOGLOBIN 28.6 pg (28.0-32.0); MEAN CORPUSCULAR VOLUME 85.2 fL (81.0-99.0); RED BLOOD CELL COUNT 4.34 mill/uL (4.2-5.4); RED CELL DISTRIBUTION WIDTH 14.5 % (11.6-14.6)
[2020-09-07 13:54] LABS: PLATELET 51 x1000/uL (130-400)
[2020-09-07 13:57] LABS: PLATELET ESTIMATE DECREASED
[2020-09-07 16:00] VITALS: BP 126/70
[2020-09-07] MEDS ORDERED: HYDRALAZINE 20MG/ML VIAL IV PRN (16:15)
[2020-09-07] MEDS ORDERED: LORAZEPAM 2MG/ML CPJ IV PRN (16:15)
[2020-09-07] MEDS ORDERED: BISACODYL 10MG SUPP PR PRN (16:15)
[2020-09-07] MEDS ORDERED: ONDANSETRON HCL 4MG/2ML INJ IV PRN (16:15)
[2020-09-07] MEDS ORDERED: DIPHENHYDRAMINE 50MG/ML VIAL IV PRN (16:15)
[2020-09-07] MEDS ORDERED: IPRATROPIUM/ALBUTEROL 0.5-3(2.5)MG/3ML NEB HHN PRN (16:15)
[2020-09-07 16:48] LABS: HEMATOCRIT. 38.7 % (36.0-48.0); HEMOGLOBIN. 12.8 g/dL (12.0-16.0); MEAN CORPUSCULAR HEMOGLOBIN 28.4 pg (28.0-32.0); MEAN CORPUSCULAR VOLUME 86.1 fL (81.0-99.0); RED CELL DISTRIBUTION WIDTH 14.4 % (11.6-14.6)
[2020-09-07 16:52] LABS: INR 1.1; PROTHROMBIN TIME 11.5 sec (9.6-11.0)
[2020-09-07 17:10] LABS: CHLORIDE 109 mEq/L (98-107)
[2020-09-07 17:18] LABS: LDL CHOLESTEROL 94 mg/dL (5-100)
[2020-09-07 17:19] LABS: HDL CHOLESTEROL 73 mg/dL (40-59); T4 FREE 0.98 ng/dL (0.76-1.46)
[2020-09-07 20:31] VITALS: BP 132/63
[2020-09-07 20:32] VITALS: BP 117/60
[2020-09-07] MEDS ORDERED: LACTULOSE 20G/30ML UDC PO PRN (21:00)
[2020-09-07] MEDS ORDERED: TEMAZEPAM 15MG CAPSULE PO PRN (21:00)
[2020-09-07] MEDS: CEFTRIAXONE 1,000 MG in DEXTROSE 5% WATER 50 ML IV SCH (21:34)
[2020-09-07 23:48] LABS: BASOPHILS % 0.6 % (0.0-2.0); EOSINOPHILS % 2.6 % (0.0-5.0); HEMATOCRIT. 39.1 % (36.0-48.0); HEMOGLOBIN. 13.1 g/dL (12.0-16.0); LYMPHOCYTES % 33.2 % (20.0-50.0); MEAN CORPUSCULAR HEMOGLOBIN 28.5 pg (28.0-32.0); MEAN PLATELET VOLUME 9.9 fl (7.4-10.4); MONOCYTES % 7.3 % (2.0-8.0); NEUTROPHILS % 56.3 % (40.0-76.0); PLATELET 65 x1000/uL (130-400); RED CELL DISTRIBUTION WIDTH 14.2 % (11.6-14.6)
[2020-09-07 23:52] LABS: CHLORIDE 109 mEq/L (98-107)
[2020-09-08 00:01] LABS: CREATINE KINASE 206 IU/L (26-192)
[2020-09-08 00:38] VITALS: BP 140/65
[2020-09-08 04:00] VITALS: BP 156/93
[2020-09-08 07:05] LABS: EOSINOPHILS % 2.8 % (0.0-5.0); HEMATOCRIT. 38.7 % (36.0-48.0); HEMOGLOBIN. 12.6 g/dL (12.0-16.0); LYMPHOCYTES % 37.4 % (20.0-50.0); MEAN CORPUSCULAR HEMOGLOBIN 27.8 pg (28.0-32.0); MEAN CORPUSCULAR VOLUME 84.9 fL (81.0-99.0); MONOCYTES % 7.7 % (2.0-8.0); NEUTROPHILS % 51.1 % (40.0-76.0); RED BLOOD CELL COUNT 4.56 mill/uL (4.2-5.4); RED CELL DISTRIBUTION WIDTH 14.4 % (11.6-14.6)
[2020-09-08 07:08] LABS: CHLORIDE 108 mEq/L (98-107)
[2020-09-08 07:21] LABS: CREATINE KINASE 188 IU/L (26-192)
[2020-09-08 08:00] VITALS: BP 129/66
[2020-09-08] MEDS: LOSARTAN POTASSIUM 25 MG TABLET PO SCH ×2 (09:03→17:00)
[2020-09-08 12:00] VITALS: BP 137/72
[2020-09-08] MEDS ORDERED: LEVO500T89 MT (13:01)
[2020-09-08] MEDS ORDERED: ASPI-1497 MT (13:01)
[2020-09-08 16:00] VITALS: BP 130/74
[2020-09-08 20:00] VITALS: BP_SYST 144; BP_SYST 160; BP_SYST 173; BP_DIAS 62; BP_DIAS 74; BP_DIAS 78
[2020-09-08] MEDS: CEFTRIAXONE 1,000 MG in DEXTROSE 5% WATER 50 ML IV SCH (21:00)
[2020-09-08] MEDS: HYDROCODONE/ACETAMINOPHEN 5/325MG TABLET PO PRN (22:20)
[2020-09-09] VITALS: BP 161/72
[2020-09-09 04:00] VITALS: BP 150/57
[2020-09-09 08:00] VITALS: BP_SYST 114; BP_SYST 155; BP_SYST 157; BP_DIAS 73; BP_DIAS 74; BP_DIAS 76
[2020-09-09] MEDS: LOSARTAN POTASSIUM 25 MG TABLET PO SCH (09:31)
[2020-09-09] MEDS: AMLODIPINE 5MG TABLET PO SCH ×2 (11:03→22:10)
[2020-09-09 12:00] VITALS: BP 112/79
[2020-09-09 16:00] VITALS: BP 124/78
[2020-09-09] MEDS ORDERED: HALOPERIDOL LACTATE 5MG/ML VIAL IM NR (16:00)
[2020-09-09 17:52] LABS: HEMATOCRIT 41.2 % (36.0-48.0); HEMOGLOBIN 13.5 g/dL (12.0-16.0); MEAN CORPUSCULAR HEMOGLOBIN 27.9 pg (28.0-32.0); MEAN CORPUSCULAR VOLUME 85.2 fL (81.0-99.0); PLATELET 79 x1000/uL (130-400); RED BLOOD CELL COUNT 4.83 mill/uL (4.2-5.4); RED CELL DISTRIBUTION WIDTH 14.4 % (11.6-14.6)
[2020-09-09 18:08] LABS: CHLORIDE 107 mEq/L (98-107)
[2020-09-09 20:00] VITALS: BP 118/79
[2020-09-09] MEDS: CEFTRIAXONE 1,000 MG in DEXTROSE 5% WATER 50 ML IV SCH (22:08)
[2020-09-09] MEDS: LOSARTAN POTASSIUM 50 MG TABLET PO SCH (22:09)
[2020-09-10] VITALS: BP 151/110
[2020-09-10 08:00] VITALS: BP 156/67
[2020-09-10] MEDS: LOSARTAN POTASSIUM 50 MG TABLET PO SCH ×2 (09:26→21:20)
[2020-09-10] MEDS: AMLODIPINE 5MG TABLET PO SCH ×2 (09:27→21:20)
[2020-09-10 12:06] VITALS: BP 146/70
[2020-09-10 16:20] VITALS: BP 122/65
[2020-09-10 20:00] VITALS: BP 150/71
[2020-09-10] MEDS: CEFTRIAXONE 1,000 MG in DEXTROSE 5% WATER 50 ML IV SCH (21:00)
[2020-09-10 22:35] LABS: BASOPHILS % 0.7 % (0.0-2.0); EOSINOPHILS % 2.5 % (0.0-5.0); HEMATOCRIT. 39.4 % (36.0-48.0); HEMOGLOBIN. 12.7 g/dL (12.0-16.0); LYMPHOCYTES % 34.5 % (20.0-50.0); MEAN CORPUSCULAR HEMOGLOBIN 27.7 pg (28.0-32.0); MEAN CORPUSCULAR VOLUME 85.8 fL (81.0-99.0); MEAN PLATELET VOLUME 9.9 fl (7.4-10.4); MONOCYTES % 7.9 % (2.0-8.0); NEUTROPHILS % 54.4 % (40.0-76.0); PLATELET 64 x1000/uL (130-400); RED BLOOD CELL COUNT 4.59 mill/uL (4.2-5.4); RED CELL DISTRIBUTION WIDTH 14.5 % (11.6-14.6)
[2020-09-10 23:13] LABS: CHLORIDE 106 mEq/L (98-107)
[2020-09-11] VITALS: BP 145/95
[2020-09-11 04:00] VITALS: BP 142/60
[2020-09-11 08:00] VITALS: BP_SYST 119; BP_SYST 134; BP_SYST 137; BP_DIAS 58; BP_DIAS 71; BP_DIAS 81
[2020-09-11] MEDS: HYDROCODONE/ACETAMINOPHEN 5/325MG TABLET PO PRN (09:46)
[2020-09-11] MEDS: LOSARTAN POTASSIUM 50 MG TABLET PO SCH ×2 (09:46→21:09)
[2020-09-11] MEDS: AMLODIPINE 5MG TABLET PO SCH ×2 (09:46→21:09)
[2020-09-11 12:00] VITALS: BP 128/64
[2020-09-11 16:00] VITALS: BP 123/67
[2020-09-11 20:00] VITALS: BP_SYST 110; BP_SYST 111; BP_SYST 138; BP_DIAS 64; BP_DIAS 69; BP_DIAS 71
[2020-09-11] MEDS: CEFTRIAXONE 1,000 MG in DEXTROSE 5% WATER 50 ML IV SCH (21:00)
[2020-09-12] VITALS: BP 125/69
[2020-09-12 04:00] VITALS: BP 134/71
[2020-09-12 08:00] VITALS: BP 153/65
[2020-09-12] MEDS: LOSARTAN POTASSIUM 50 MG TABLET PO SCH ×2 (09:26→21:46)
[2020-09-12] MEDS: AMLODIPINE 5MG TABLET PO SCH ×2 (09:27→21:46)
[2020-09-12 16:00] VITALS: BP 113/61
[2020-09-12 20:00] VITALS: BP 135/64
[2020-09-12] MEDS: CEFTRIAXONE 1,000 MG in DEXTROSE 5% WATER 50 ML IV SCH (21:00)
[2020-09-13] VITALS (7 sets, daily range): BP systolic 100–163; BP diastolic 61–74
[2020-09-13] MEDS: LOSARTAN POTASSIUM 50 MG TABLET PO SCH ×2 (09:02→22:08)
[2020-09-13] MEDS: AMLODIPINE 5MG TABLET PO SCH ×2 (09:02→22:08)
[2020-09-14] VITALS (7 sets, daily range): BP systolic 99–142; BP diastolic 58–77
[2020-09-14] MEDS: AMLODIPINE 5MG TABLET PO SCH ×2 (09:00→20:56)
[2020-09-14] MEDS: LOSARTAN POTASSIUM 50 MG TABLET PO SCH ×2 (09:00→20:56)
[2020-09-14 09:35] LABS: VITAMIN B12 SERUM 642 pg/mL (211-911)
[2020-09-15] VITALS: BP 137/67
[2020-09-15 04:23] VITALS: BP 123/66
[2020-09-15 08:00] VITALS: BP 154/67
[2020-09-15 08:18] VITALS: BP 154/69
[2020-09-15] MEDS: LOSARTAN POTASSIUM 50 MG TABLET PO SCH (09:07)
[2020-09-15] MEDS: AMLODIPINE 5MG TABLET PO SCH (09:08)
[2020-09-15] MEDS ORDERED: HYDRALAZINE 10 MG in SODIUM CHLORIDE 0.9% 49.5 ML IV PRN (11:15)
[2020-09-15 12:00] VITALS: BP 127/57
[2020-09-15 14:49] VITALS: BP 127/57
== END 2020-09-15 15:25 | disposition home or self-care (01) | DRG 813 ==
LOC: ER 16:20 → 6WST 23:43 → EDBEDREQTM 23:55 → EDBEDREQ 23:55 → ENRESERV 09-07 03:54 → 6EST 09-15 10:39
PROVIDERS: ADMIT Internal Medicine; ATTEND Internal Medicine
DX: D69.3 Immune thrombocytopenic purpura (principal); I50.43 Acute on chronic combined systolic (congestive) and diastolic (congestive) heart failure; N39.0 Urinary tract infection, site not specified; I69.351 Hemiplegia and hemiparesis following cerebral infarction affecting right dominant side; I42.9 Cardiomyopathy, unspecified; I31.3 Pericardial effusion (noninflammatory); G90.8 Other disorders of autonomic nervous system; I11.0 Hypertensive heart disease with heart failure; Z20.822 Contact with and (suspected) exposure to COVID-19; I34.0 Nonrheumatic mitral (valve) insufficiency; I70.0 Atherosclerosis of aorta; F03.90 Unspecified dementia, unspecified severity, without behavioral disturbance, psychotic disturbance, mood disturbance, and anxiety; M85.80 Other specified disorders of bone density and structure, unspecified site; W18.30XA Fall on same level, unspecified, initial encounter; Z96.641 Presence of right artificial hip joint; Z96.653 Presence of artificial knee joint, bilateral; Y93.89 Activity, other specified; Z79.899 Other long term (current) drug therapy; Y92.89 Other specified places as the place of occurrence of the external cause; Y99.8 Other external cause status
CPT/HCPCS: 36415; 72170; 73552; 80048; 80053; 80061; 81003; 82550; 82607; 83735; 84439; 84443; 84484; 85025; 85027; 86022; 86850; 86900; 87426; 93005; 93306; 93880; 93970; 97110; 97116; 97162; 97535; 99285; J0696; J1630; J1650; J2060; J7060